=== PATIENT | female | born 1990 | race Caucasian/White ===

== ENCOUNTER 2020-10-05 16:36 | Emergency (ER) | payer OTHER, SELFPAY ==
--- NOTE | ~2020-10-05 | US_ITS ---
EXAMINATION: US , LESS THAN 14 WEEKS CLINICAL INFORMATION: 4 weeks . Heavy vaginal bleeding COMPARISON: None. TECHNIQUE: Transcutaneous early obstetrical ultrasound. The patient was asked to void completely and reexamined vaginally to better characterize the endometrial cavity and adnexa. FINDINGS: No suspicious abnormality in the region of the vagina. The cervix is at least 2 cm in length. There are numerous anechoic spaces consistent with small nabothian cysts. No convincing intrauterine gestational sac. No cardiac activity demonstrated. No pole demonstrated. The uterine contour is smooth. There is some decidual reaction. No focal abnormality of the myometrium. The endometrium is thickened and heterogeneous. There is no anechoic space to suggest gestational sac or pseudogestational sac. No large adnexal mass. The right ovary measures approximately 3.2 x 2.2 x 2.6 cm.The estimated right ovarian volume is 10 mL. No suspicious right adnexal mass or collection. The left ovary measures approximately 2.8 x 2.1 x 1.6 cm. The estimated left ovarian volume is fontanelle. No suspicious left adnexal mass or collection. Measurements include: Gestational sac not demonstrated. No yolk sac demonstrated. No pole demonstrated. No specific evidence of an ectopic . No cardiac activity demonstrated. There may be a trace amount of cul-de-sac fluid which is nonspecific US/US OB pelvic and transvaginal IMPRESSION: No intrauterine gestation demonstrated. The possibilities include a which is too early to detect within the uterus. Ectopic is not excluded. Heterogeneous thickened endometrium could reflect bleeding. The patient should be managed on a clinical basis
--- NOTE | 2020-10-05 18:18 | ED_ITS ---
HPI - Female Genitourinary General Chief complaint: Vaginal Bleeding Stated complaint: vaginal bleeding Time Seen by Provider: 10/05/20 18:18 Source: patient Mode of arrival: ambulatory Limitations: no limitations History of Present Illness HPI Narrative: Patient primi with in-vitro fertilization on 09/16 noticed to have slight vaginal bleeding earlier today just passed a moderate size clot prior to arrival with lower abdominal cramps. Related Data Allergies Allergy/AdvReac Type Severity Reaction Status Date / Time No Known Allergies Allergy Verified 12/19/19 11:15 lactose Allergy Unknown Unknown Uncoded 12/19/19 11:15 Review of Systems Review of Systems: Yes all other systems are reviewed and are negative [facility] Past Medical History Surgical History Epidermal cyst Family History Family History Father HTN (hypertension) Cancer Diabetes mellitus Unknown family medical history Mother HTN (hypertension) Maternal Grandmother No problems noted. Maternal Grandfather Unknown family medical history Paternal Grandmother Unknown family medical history Cancer Paternal Grandfather Unknown family medical history Brother No problems noted. Sister No problems noted. Sister No problems noted. Social History Social History Advance Directives: No Advance Directives Information Provided: No Patient : Yes Physical Exam Vital Signs: Vital Signs: Last Vital Signs Temp 98.6 F 10/05/20 18:35 Pulse 101 H 10/05/20 18:35 Resp 20 10/05/20 18:35 BP 130/78 10/05/20 18:35 Pulse Ox 100 10/05/20 18:35 Body Mass Index 32.1 Appearance: Alert. Oriented X3. No acute distress. Eyes: PERRLA, No Nystagmus ENT: Pharynx normal. Oral Mucosa moist Neck: Normal inspection. Neck supple. CVS: Normal heart rate and rhythm. Pulses normal. Respiratory: No respiratory distress. Equal air entry bilateral, no wheezing/rales/rhonchi Abdomen: Soft and nontender. Bowel sounds are present, no mass palpable, no CVA tenderness Skin: Skin warm and dry. Normal skin color. Normal skin turgor. Extremities: No lower extremity edema. No calf tenderness Neuro: Oriented X 3. MDM - Female Genitourinary MDM Narrative Medical decision making narrative: Patient with HCG 7927ultrasound negative for any IUP likely miscarriage patient advised to follow-up with her OB tomorrow Lab Data Attestation: I reviewed the patient's lab results. Labs: Lab Results 10/05/20 10/05/20 Range/Units 19:25 19:25 Beta HCG, Quant 7927 mIU/mL Blood Type A Positive Imaging Data US - abdomen: Radiologist's impression: Patient: Janene Cano MR#: [id number] : 1990 Acct:[id number] Age/Sex: 30 / F ADM Date: 10/05/20 Loc: HO.ED Attending Dr: Ordering Physician: Mina Joya MD Date of Service: 10/05/20 Procedure(s): US OB pelvic and transvaginal Accession Number(s): [id number] cc: Mina Joya MD~ EXAMINATION: US , LESS THAN 14 WEEKS CLINICAL INFORMATION: 4 weeks . Heavy vaginal bleeding COMPARISON: None. TECHNIQUE: Transcutaneous early obstetrical ultrasound. The patient was asked to void completely and reexamined vaginally to better characterize the endometrial cavity and adnexa. FINDINGS: No suspicious abnormality in the region of the vagina. The cervix is at least 2 cm in length. There are numerous anechoic spaces consistent with small nabothian cysts. No convincing intrauterine gestational sac. No cardiac activity demonstrated. No pole demonstrated. The uterine contour is smooth. There is some decidual reaction. No focal abnormality of the myometrium. The endometrium is thickened and heterogeneous. There is no anechoic space to suggest gestational sac or pseudogestational sac. No large adnexal mass.? The right ovary measures approximately 3.2 x 2.2 x 2.6 cm.The estimated right ovarian volume is 10 mL. No suspicious right adnexal mass or collection. The left ovary measures approximately 2.8 x 2.1 x 1.6 cm. The estimated left ovarian volume is fontanelle. No suspicious left adnexal mass or collection. Measurements include: Gestational sac not demonstrated. No yolk sac demonstrated. No pole demonstrated. No specific evidence of an ectopic . No cardiac activity demonstrated. There may be a trace amount of cul-de-sac fluid which is nonspecific US/US OB pelvic and transvaginal IMPRESSION: No intrauterine gestation demonstrated. ? The possibilities include a which is too early to detect within the uterus. ? Ectopic is not excluded. ? Heterogeneous thickened endometrium could reflect bleeding. ? The patient should be managed on a clinical basis ? Discharge Plan Discharge Clinical Impression: Threatened Patient Disposition: Home, Self-Care Instructions: Threatened Miscarriage (ED) Additional Instructions: Follow-up with your OBG in 1-2 days for confirmation of /miscarriage Tylenol for pain Interventions: ED Discharge Assessment Last Done: 10/05/20 20:49 Discharge Date/Time: 10/05/20 20:50
[2020-10-05 18:35] VITALS: BP 130/78; PULSE 101; RESP 20; TEMP 37; O2SAT 100; BMI 32.1
[2020-10-05 20:07] LABS: HCG Quantitative 7927 mIU/mL
--- NOTE | 2020-10-05 20:49 | PC.NURSE ---
Pt reports passing 1 large clot, otherwise small amount of vaginal bleeding at this time, changing hygeine pad q3 hrs.
== END 2020-10-05 20:50 | disposition home or self-care (01) ==
PROVIDERS: Emergency Provider Internal Medicine
DX: O20.0 Threatened abortion (principal); Z3A.01 Less than 8 weeks gestation of pregnancy
CPT/HCPCS: 36415; 76801; 76817; 84702; 86900; 86901; 99283; 99284

== ENCOUNTER 2020-12-12 08:13 | Emergency (ER) | payer OTHER, SELFPAY ==
--- NOTE | ~2020-12-12 | XR_ITS ---
EXAMINATION: XR SOFT TISSUE NECK CLINICAL INDICATION: Throat swelling/tightness. COMPARISON: None TECHNIQUE: 2 views of the soft tissue neck were obtained. FINDINGS: Soft tissue films of the neck demonstrate a normal larynx, pharynx and upper trachea. No soft tissue swelling or opaque foreign body is demonstrated. XR/XR soft tissue neck IMPRESSION: Unremarkable examination.
--- NOTE | ~2020-12-12 | XR_ITS ---
EXAMINATION: XR CHEST CLINICAL INFORMATION: Chest pain. COMPARISON: Most recent chest radiograph dated 09/19/2016. TECHNIQUE: Frontal view of the chest was obtained. FINDINGS: The lungs are clear. The cardiomediastinal silhouette is normal in size. There is no pleural effusion or pneumothorax. No acute osseous abnormality. XR/XR chest 1V IMPRESSION: No acute cardiopulmonary findings.
--- NOTE | 2020-12-12 08:15 | ECG_ITS ---
Test Reason : EPIGATRIC PAIN Blood Pressure : / mmHG Vent. Rate : 083 BPM Atrial Rate : 083 BPM P-R Int : 166 ms QRS Dur : 088 ms QT Int : 384 ms P-R-T Axes : 025 057 009 degrees QTc Int : 451 ms Normal sinus rhythm Normal ECG No previous ECGs available Referred By: Generic ED Physician Electronically Signed By:WASHINGTON ZAMBRANO MD
[2020-12-12 09:19] LABS: MANUAL DIFF FLAG NO
[2020-12-12 09:20] LABS: Basophils Percent Auto 0.5 % (0-2); Eosinophils Absolute Auto 0.1 X10*3/uL (0.0-0.4); Eosinophils Percent Auto 0.8 % (0-4); Hematocrit 36.9 % (37-47); Hemoglobin 12.1 g/dl (12.0-16.0); Imm Gran Abs Auto 0.04 X10*3/uL (0.00-0.03); Imm Gran Pct Auto 0.5 % (0.0-0.4); Lymphocytes Absolute Auto 3.3 X10*3/uL (1.2-4.9); Lymphocytes Percent Auto 38.9 % (20-40); Mean Corpuscular HGB Conc 32.8 g/dl (31.0-35.0); Mean Corpuscular Hemoglobin 28.5 pg (27.0-33.0); Mean Platelet Volume 9.6 fL (9.4-12.3); Monocytes Absolute Auto 0.6 X10*3/uL (0.1-1.2); Monocytes Percent Auto 7.4 % (2-11); Neutrophils Absolute Auto 4.4 X10*3/uL (2.0-8.3); Neutrophils Percent Auto 51.9 % (45-73); Platelet Count 334 X10*3/uL (160-400); Red Blood Count 4.24 X10*6/uL (4.20-5.50); Red Cell Distribution Width 13.1 % (11.0-16.0); White Blood Count 8.4 X10*3/uL (4.8-10.8)
[2020-12-12 09:24] VITALS: BP 112/75; PULSE 69; RESP 16; TEMP 36.8; O2SAT 98; BMI 30.9
[2020-12-12 09:40] LABS: Anion Gap 8 (12-20); Blood Urea Nitrogen 9 mg/dL (9-16); Calcium 9.6 mg/dL (8.4-10.2); Carbon Dioxide 28 mmol/L (22-29); Chloride 109 mmol/L (96-108); Estimated Glomerular Filt Rate > 60; Glucose Random 96 mg/dL (60-115); Potassium 4.4 mmol/L (3.3-5.1); Sodium 141 mmol/L (135-145)
[2020-12-12 09:41] LABS: Troponin-I High Sensitivity < 3.5 ng/L (<3.5-17.0)
--- NOTE | 2020-12-12 09:58 | ED.GENADULT ---
HPI - General Adult General Chief complaint: General Medical Stated complaint: chest pain Time Seen by Provider: 12/12/20 09:17 Source: patient Mode of arrival: ambulatory History of Present Illness HPI narrative: 30-year-old female with a past medical history of miscarriage in September, currently on Doxycycline for ?uterine enlargement since 12/01, presented to ED complaining of sore throat/throat tightness radiating down to chest x5 days. Reports pain with swallowing and CP. Denies LE edema/calf pain. Admits symptoms are intermittent. Denies difficulty swallowing, inability to swallow, drooling, SOB, choking, abdominal pain, nausea/vomiting Onset (ago): day(s) Related Data Home Medications Medication Instructions Recorded Confirmed doxycycline hyclate 100 mg capsule 100 mg PO BID 12/11/20 Previous Rx's Medication Instructions Recorded famotidine 20 mg tablet 20 mg PO BID PRN #60 tab 12/11/20 omeprazole 20 mg capsule,delayed 20 mg PO DAILY #30 cap 12/11/20 release aluminum-mag hydroxide-simethicone 5 ml PO 5XD PRN #30 ml 12/12/20 200 mg-200 mg-20 mg/5 mL oral susp (Maalox Advanced) famotidine 20 mg tablet (Pepcid) 20 mg PO DAILY #14 tab 12/12/20 lidocaine HCl 2 % mucosal solution 1 appl MUCOUS MEMBRANE QID PRN 12/12/20 (Lidocaine Viscous) #100 ml Allergies Allergy/AdvReac Type Severity Reaction Status Date / Time No Known Allergies Allergy Verified 12/19/19 11:15 lactose Allergy Unknown Unknown Uncoded 12/19/19 11:15 Review of Systems Review of Systems: Constitutional: No Fever, No Chills, No Fatigue, No Malaise ENT/Mouth: No Ear Pain, No Nasal Congestion, No Sinus Pain, No Hoarseness, + sore throat,+ pain with swallowing, No Swallowing Difficulty Eyes: No Eye Pain, No Swelling, No Redness Cardiovascular: + Chest Pain, No SOB, No Dyspnea on Exertion, No Edema, No Palpitations Respiratory: No Cough, No Dyspnea Gastrointestinal: No Nausea, No Vomiting, No Diarrhea, No Constipation, No Abdominal pain Genitourinary: , No Dysuria, No Urinary Frequency, No Hematuria,No Flank Pain, No Urinary Flow Changes, No Hesitancy Musculoskeletal: No joint pain, No Myalgias, No Joint Swelling Skin: No Skin Lesions, No rash Neuro: No Weakness, No Numbness, No Headache Yes all other systems are reviewed and are negative [facility] Past Medical History Attestation statement: The following information was validated with the patient. Surgical History Epidermal cyst Family History Family History Father HTN (hypertension) Cancer Diabetes mellitus Unknown family medical history Mother HTN (hypertension) Maternal Grandmother No problems noted. Maternal Grandfather Unknown family medical history Paternal Grandmother Unknown family medical history Cancer Paternal Grandfather Unknown family medical history Brother No problems noted. Sister No problems noted. Sister No problems noted. Social History Social History Advance Directives: No Patient : No Physical Exam Vital Signs: Vital Signs: Last Vital Signs Temp 98.3 F 12/12/20 09:24 Pulse 69 12/12/20 09:24 Resp 16 12/12/20 09:24 BP 112/75 12/12/20 09:24 Pulse Ox 98 12/12/20 09:24 Body Mass Index 30.9 Const: General: cooperative, healthy appearing and no acute distress Orientation/consciousness: patient oriented x3 Limitations: no limitations HENMT: Head: Yes normal to inspection Ears: hearing grossly normal bilaterally General nose exam: Normal external nose present Face and sinus: Yes normal facial exam Throat: Yes posterior oropharynx normal, Yes tonsils normal, Yes uvula midline, No peritonsillar mass and No uvular edema Eyes: General: appearance normal, both eyes and all related structures EOM: EOMs intact bilaterally Neck: Other: + bilateral tender anterior cervical lymphadenopathy Neck: Yes normal visual inspection, Yes no lymphadenopathy, Yes no meningeal signs, Yes supple and No torticollis Resp: Effort & Inspection: normal respiratory effort, no grunting, not labored, no stridor and not tachypneic Auscultation: clear to auscultation bilaterally, no rales, no rhonchi and no wheezes Cardio: Rate: regular rate Heart sounds: S1 normal heart sound present and S2 normal heart sound present GI: Inspection: Yes normal to inspection Palpation (GI): Soft to palpation, nontender, no guarding and not rigid Skin: Rashes: no rashes Wounds: no wounds Neuro: General: patient oriented x3 and no meningeal signs Gait exam (Neuro): Normal gait present Extrem: General: Yes normal to inspection, Yes no pedal edema and Yes no calf tenderness Course Course Course Narrative: -no leukocytosis. Labs otherwise unremarkable. Troponin negative. XR chest 1V IMPRESSION: No acute cardiopulmonary findings. XR soft tissue neck IMPRESSION: Unremarkable examination. > results discussed with patient including worrisome signs and symptoms and strict return precautions and need to follow up with ENT Medical Decision Making [facility] Narrative Medical decision making narrative: 30-year-old female with a past medical history of miscarriage in September, currently on Doxycycline for ?uterine enlargement since 12/01, presented to ED complaining of sore throat/throat tightness radiating down to chest x5 days. On exam VSS, NAD, nontoxic appearing, anterior cervical lymphadenopathy noted, oropharynx WNL, no appreciable intraoral swelling, lungs CTA, no stridor, talking in full sentences, abdomen soft/nontender. Concern for esophagitis/GERD possibly due to doxycycline vs atypical ACS Plan: EKG, labs, CXR, soft tissue neck, symptomatic remedies, reassess Lab Data Result diagrams: 12/12/20 09:09 12/12/20 09:09 Labs: Lab Results 12/12/20 12/12/20 12/12/20 Range/Units 09:09 09:09 09:09 WBC 8.4 (4.8-10.8) X10*3/uL RBC 4.24 (4.20-5.50) X10*6/uL Hgb 12.1 (12.0-16.0) g/dl Hct 36.9 L (37-47) % MCV 87.0 (80-98) fL MCH 28.5 (27.0-33.0) pg MCHC 32.8 (31.0-35.0) g/dl RDW 13.1 (11.0-16.0) % Plt Count 334 (160-400) X10*3/uL MPV 9.6 (9.4-12.3) fL Immature Gran % (Auto) 0.5 H (0.0-0.4) % Neut % (Auto) 51.9 (45-73) % Lymph % (Auto) 38.9 (20-40) % [place] % (Auto) 7.4 (2-11) % Eos % (Auto) 0.8 (0-4) % Baso % (Auto) 0.5 (0-2) % Lymph # (Auto) 3.3 (1.2-4.9) X10*3/uL [place] # (Auto) 0.6 (0.1-1.2) X10*3/uL Eos # (Auto) 0.1 (0.0-0.4) X10*3/uL Baso # (Auto) 0.0 (0.0-0.2) X10*3/uL Abs Immat Gran (auto) 0.04 H (0.00-0.03) X10*3/uL Absolute Neuts (auto) 4.4 (2.0-8.3) X10*3/uL Absolute Nucleated RBC 0.000 (0.0-0.012) X10*3/uL Nucleated RBC % (auto) 0.0 (0.0-0.2) /100WBC Sodium 141 (135-145) mmol/L Potassium 4.4 (3.3-5.1) mmol/L Chloride 109 H (96-108) mmol/L Carbon Dioxide 28 (22-29) mmol/L Anion Gap 8 L (12-20) BUN 9 (9-16) mg/dL Creatinine 0.68 (0.5-1.4) mg/dL Estim Creat Clear Calc 132.0 Estimated GFR > 60 Random Glucose 96 (60-115) mg/dL Calcium 9.6 (8.4-10.2) mg/dL Troponin I High Sens < 3.5 (<3.5-17.0) ng/L Discharge Plan Discharge Clinical Impression: Esophagitis Patient Disposition: Home, Self-Care Instructions: Esophagitis (ED) Additional Instructions: Your x-rays are unremarkable. Her blood work was reassuring Maalox and Pepcid will help with acid reduction/pain management if her symptoms Viscous lidocaine will help numb her throat Please follow-up with an ENT specialist If you develop continued or worsening symptoms, difficulty or inability to swallow, oral swelling, shortness of breath please return to the ED immediately Prescriptions: New alum-mag hydroxide-simeth [Maalox Advanced] 200-200-20 mg/5 mL suspension 5 ml PO 5XD PRN (Reason: dyspepsia) Qty: 30 RF: 0 famotidine [Pepcid] 20 mg tablet 20 mg PO DAILY Qty: 14 RF: 0 lidocaine HCl [Lidocaine Viscous] 2 % solution 1 appl mucous membrane QID PRN (Reason: pain) Qty: 100 RF: 0 No Action doxycycline hyclate 100 mg capsule 100 mg PO BID RF: 0 famotidine 20 mg tablet 20 mg PO BID PRN (Reason: dyspepsia) Qty: 60 RF: 0 omeprazole 20 mg capsule,delayed release(DR/EC) 20 mg PO DAILY Qty: 30 RF: 0 Referrals: Ulices Grant [Physician] - 5 days
[2020-12-12] MEDS: Magnesium Hydrox/Alum Hydrox 30 ML ORAL.SUSP PO (10:53)
[2020-12-12] MEDS: Famotidine 20 MG TABLET PO (10:53)
[2020-12-12] MEDS: Lidocaine HCl Viscous 2 % 15 ML SOLUTION MUCOUS MEM (10:53)
== END 2020-12-12 11:27 | disposition home or self-care (01) ==
PROVIDERS: Emergency Provider Emergency Medicine
DX: K20.90 Esophagitis, unspecified without bleeding (principal); R07.9 Chest pain, unspecified; M54.2 Cervicalgia; Z79.899 Other long term (current) drug therapy
CPT/HCPCS: 36415; 70360; 71045; 80048; 84484; 85025; 93005; 99283

== ENCOUNTER 2021-06-26 08:48 | Outpatient (REF) | payer OTHER, SELFPAY ==
[2021-06-26 11:35] LABS: Hematocrit 39.3 % (37.0-47.0); Hemoglobin 12.8 g/dl (12.0-16.0); Mean Corpuscular HGB Conc 32.6 g/dl (31.0-35.0); Mean Corpuscular Hemoglobin 27.7 pg (27.0-33.0); Mean Corpuscular Volume 85.1 fL (80.0-98.0); Mean Platelet Volume 9.9 fL (9.4-12.3); Platelet Count 368 X10*3/uL (160-400); Red Blood Count 4.62 X10*6/uL (4.20-5.50); White Blood Count 8.8 X10*3/uL (4.8-10.8)
[2021-06-26 12:29] LABS: Alanine Aminotransferase 18 U/L (0-31); Albumin Level 4.1 g/dL (3.5-5.0); Alkaline Phosphatase 80 U/L (39-117); Anion Gap 9 (12-20); Aspartate Amino Transferase 19 U/L (5-31); Bilirubin Total 0.3 mg/dL (0.0-1.0); Blood Urea Nitrogen 11 mg/dL (9-16); Calcium 9.6 mg/dL (8.4-10.2); Carbon Dioxide 27 mmol/L (22-29); Chloride 106 mmol/L (96-108); Cholesterol 292 mg/dL; Estimated Glomerular Filt Rate > 60; Glucose Fasting 99 mg/dL (60-99); HDL Cholesterol 49 mg/dL; LDL Cholesterol Calculated 213 mg/dl; Potassium 4.3 mmol/L (3.3-5.1); Sodium 138 mmol/L (135-145); Total Protein 7.8 g/dL (6.5-8.0); Triglycerides 154 mg/dL
[2021-06-28 19:36] LABS: TS Negative Control Passed; TS Panel A 0; TS Panel B 0; TS Positive Control Passed; TSpotTB Negative (Negative)
[2021-06-30 05:07] LABS: Rubella IgG Antibody 1.35 Index
== END 2021-06-26 08:49 | disposition home or self-care (01) ==
LOC: HO.HMGCLDS 08:48
PROVIDERS: Visit Provider Internal Medicine
DX: Z00.00 Encounter for general adult medical examination without abnormal findings (principal); Z11.1 Encounter for screening for respiratory tuberculosis
CPT/HCPCS: 36415; 80053; 80061; 85027; 86481; 86735; 86762; 86765

== ENCOUNTER 2021-07-13 19:29 | Emergency (ER) | payer OTHER, SELFPAY ==
[2021-07-13 19:38] VITALS: BP 139/84; PULSE 100; RESP 18; TEMP 36.4; O2SAT 96; BMI 33.4
[2021-07-13 19:50] LABS: MANUAL DIFF FLAG NO
[2021-07-13 19:52] LABS: Basophils Absolute Auto 0.1 X10*3/uL (0.0-0.2); Basophils Percent Auto 0.4 % (0-2); Eosinophils Absolute Auto 0.1 X10*3/uL (0.0-0.4); Eosinophils Percent Auto 0.6 % (0-4); Hematocrit 36.6 % (37.0-47.0); Imm Gran Abs Auto 0.04 X10*3/uL (0.00-0.03); Imm Gran Pct Auto 0.3 % (0.0-0.4); Lymphocytes Absolute Auto 4.4 X10*3/uL (1.2-4.9); Lymphocytes Percent Auto 38.6 % (20-40); Mean Corpuscular HGB Conc 32.8 g/dl (31.0-35.0); Mean Corpuscular Hemoglobin 27.6 pg (27.0-33.0); Mean Corpuscular Volume 84.3 fL (80.0-98.0); Mean Platelet Volume 9.5 fL (9.4-12.3); Monocytes Absolute Auto 0.8 X10*3/uL (0.1-1.2); Monocytes Percent Auto 6.7 % (2-11); Neutrophils Absolute Auto 6.1 x10*3/uL (2.0-8.3); Neutrophils Percent Auto 53.4 % (45-73); Platelet Count 345 X10*3/uL (160-400); Red Blood Count 4.34 X10*6/uL (4.20-5.50); Red Cell Distribution Width 13.1 % (11.0-16.0); White Blood Count 11.5 X10*3/uL (4.8-10.8)
[2021-07-13 20:17] LABS: Anion Gap 12 (12-20); Blood Urea Nitrogen 13 mg/dL (9-16); Calcium 9.8 mg/dL (8.4-10.2); Carbon Dioxide 25 mmol/L (22-29); Chloride 108 mmol/L (96-108); Creatinine Clr Calc Pharmacy 121.6; Estimated Glomerular Filt Rate > 60; Glucose Random 139 mg/dL (60-115); Potassium 3.6 mmol/L (3.3-5.1); Sodium 141 mmol/L (135-145)
[2021-07-14 02:13] VITALS: BP 119/80; PULSE 70; RESP 18; O2SAT 97
--- NOTE | 2021-07-14 03:02 | ED.SKABFB ---
HPI - Skin/Abscess/Foreign Bdy General Chief complaint: Skin/Abscess/Foreign Body Stated complaint: painful bump on R breast Time Seen by Provider: 07/14/21 00:10 Source: patient Mode of arrival: ambulatory History of Present Illness HPI narrative: 31-year-old female without significant past medical history and denies any family history of breast cancer presents with a small reddened area to the medial aspect of the right breast this started Tuesday and has progressively grown in size and is now quite painful. Otherwise she denies any fever chills. Related Data Previous Rx's Medication Instructions Recorded cephalexin 500 mg capsule 500 mg PO Q12H 5 Days #10 cap 07/14/21 Allergies Allergy/AdvReac Type Severity Reaction Status Date / Time No Known Allergies Allergy Verified 07/13/21 19:38 lactose Allergy Unknown Unknown Uncoded 07/13/21 19:38 Review of Systems Review of Systems: Pertinent positives and negatives as stated in HPI 10 point review of systems is otherwise negative. [facility] Past Medical History Source: nursing notes reviewed Medical History Annual physical exam Hyperlipidemia Normal pelvic exam Surgical History Epidermal cyst Family History Family History Father HTN (hypertension) Cancer Diabetes mellitus Unknown family medical history Mother HTN (hypertension) Maternal Grandmother No problems noted. Maternal Grandfather Unknown family medical history Paternal Grandmother Unknown family medical history Cancer Paternal Grandfather Unknown family medical history Brother No problems noted. Sister No problems noted. Sister No problems noted. Social History Social History Household Members Other:: , no children, works in school cafeteria Housing: House Patient Tobacco Use Status: Never used Tobacco Advance Directives: No Advance Directives Information Provided: No Current occupational status: employed Cognitive needs: No Hearing needs: No Vision needs: No Physical Exam Vital Signs: Vital Signs: Last Vital Signs Temp 97.6 F 07/13/21 19:38 Pulse 70 07/14/21 02:13 Resp 18 07/14/21 02:13 BP 119/80 07/14/21 02:13 Pulse Ox 97 07/14/21 02:13 BMI result Body Mass Index 33.4 VITAL SIGNS: Reviewed. GENERAL: Well developed, well nourished, in no acute distress. HEAD: Normocephalic/atraumatic EYES: PERRLA, EOMI LUNGS: Normal breath sounds. No adventitious sounds or accessory muscle use. SpO2<97> RIGHT BREAST:[[employer]-Tosin] there is a 2 cm circumferential reddened area without fluctuance noted to the medial aspect of the right breast. CARDIOVASCULAR: Regular rate and rhythm without noted murmurs ABDOMEN: Soft, non-tender, non-distended with bowel sounds. MUSCULOSKELETAL: No tenderness, deformities, or effusions noted on gross inspection. EXTREMITIES: No cyanosis, clubbing or edema. SKIN: Inspection of the skin reveals no rashes NEUROLOGIC: Alert and oriented x 4. Course Course Course Narrative: 31-year-old female with history and clinical presentation consistent with a folliculitis/abscess at the right breast. This will be treated with continued warm moist compresses as well as a course of antibiotics. MDM - Skin/Abscess/Foreign Bdy Lab Data Result diagrams: 07/13/21 19:47 07/13/21 19:47 Labs: Lab Results 07/13/21 07/13/21 Range/Units 19:47 19:47 WBC 11.5 H (4.8-10.8) X10*3/uL RBC 4.34 (4.20-5.50) X10*6/uL Hgb 12.0 (12.0-16.0) g/dl Hct 36.6 L (37.0-47.0) % MCV 84.3 (80.0-98.0) fL MCH 27.6 (27.0-33.0) pg MCHC 32.8 (31.0-35.0) g/dl RDW 13.1 (11.0-16.0) % Plt Count 345 (160-400) X10*3/uL MPV 9.5 (9.4-12.3) fL Immature Gran % (Auto) 0.3 (0.0-0.4) % Neut % (Auto) 53.4 (45-73) % Lymph % (Auto) 38.6 (20-40) % [place] % (Auto) 6.7 (2-11) % Eos % (Auto) 0.6 (0-4) % Baso % (Auto) 0.4 (0-2) % Lymph # (Auto) 4.4 (1.2-4.9) X10*3/uL [place] # (Auto) 0.8 (0.1-1.2) X10*3/uL Eos # (Auto) 0.1 (0.0-0.4) X10*3/uL Baso # (Auto) 0.1 (0.0-0.2) X10*3/uL Abs Immat Gran (auto) 0.04 H (0.00-0.03) X10*3/uL Absolute Neuts (auto) 6.1 (2.0-8.3) x10*3/uL Absolute Nucleated RBC 0.000 (0.0-0.012) X10*3/uL Nucleated RBC % (auto) 0.0 (0.0-0.2) /100WBC Sodium 141 (135-145) mmol/L Potassium 3.6 (3.3-5.1) mmol/L Chloride 108 (96-108) mmol/L Carbon Dioxide 25 (22-29) mmol/L Anion Gap 12 (12-20) BUN 13 (9-16) mg/dL Creatinine 0.76 (0.5-1.4) mg/dL Estim Creat Clear Calc 121.6 Estimated GFR > 60 Random Glucose 139 H (60-115) mg/dL Calcium 9.8 (8.4-10.2) mg/dL Discharge Plan Discharge Clinical Impression: Abscess of breast Patient Disposition: Home, Self-Care Instructions: Mastitis (ED), Warm Compress or Soak (ED) Additional Instructions: 1. Complete the entire course of antibiotics as prescribed. 2. Please establish care with a primary care provider at your earliest convenience. Return to the ER for worsening symptoms. Prescriptions: New cephalexin 500 mg capsule 500 mg PO Q12H 5 Days Qty: 10 0RF Referrals: Physician,Unknown J [Primary Care Provider] -
[2021-07-14] MEDS: cephALEXin 500 MG CAPSULE PO (03:13)
[2021-07-14 03:17] VITALS: BP 125/82; PULSE 72; RESP 16; TEMP 36.6; O2SAT 98
== END 2021-07-14 03:18 | disposition home or self-care (01) ==
PROVIDERS: Emergency Provider Student in an Organized Health Care Education/Training Program
DX: N61.1 Abscess of the breast and nipple (principal); Z79.899 Other long term (current) drug therapy
CPT/HCPCS: 36415; 80048; 85025; 99283; 99284

== ENCOUNTER 2021-07-31 01:47 | Emergency (ER) | payer SELFPAY ==
--- NOTE | 2021-07-31 | ECG_ITS ---
Test Reason : CHEST PAIN Blood Pressure : / mmHG Vent. Rate : 099 BPM Atrial Rate : 099 BPM P-R Int : 168 ms QRS Dur : 092 ms QT Int : 332 ms P-R-T Axes : 030 073 006 degrees QTc Int : 426 ms Normal sinus rhythm Possible Left atrial enlargement Possible Inferior infarct (cited on or before 31-JUL-2021) Abnormal ECG When compared with ECG of 12-DEC-2020 08:20, No significant change was found Referred By: Generic ED Physician Electronically Signed By:EDU HOLLEY MD
--- NOTE | ~2021-07-31 | XR_ITS ---
EXAMINATION: XR CHEST CLINICAL INFORMATION: Chest pain COMPARISON: 12/12/2020 TECHNIQUE: 2 views of the chest were obtained. FINDINGS: Lung volumes are symmetric. No focal consolidation is seen. No evidence of pneumothorax, pleural effusion, or pulmonary edema. The cardiomediastinal contour is unremarkable. No acute osseous findings are seen. XR/XR chest 2V IMPRESSION: No acute cardiopulmonary findings.
[2021-07-31 01:52] VITALS: BP 144/84; PULSE 97; RESP 16; TEMP 36.9; O2SAT 98; BMI 33.4
[2021-07-31 02:17] LABS: Basophils Percent Auto 0.3 % (0-2); Eosinophils Percent Auto 0.4 % (0-4); Hematocrit 35.4 % (37.0-47.0); Hemoglobin 11.6 g/dl (12.0-16.0); Imm Gran Abs Auto 0.07 X10*3/uL (0.00-0.03); Imm Gran Pct Auto 0.7 % (0.0-0.4); Lymphocytes Absolute Auto 3.3 X10*3/uL (1.2-4.9); Lymphocytes Percent Auto 35.4 % (20-40); MANUAL DIFF FLAG NO; Mean Corpuscular HGB Conc 32.8 g/dl (31.0-35.0); Mean Corpuscular Hemoglobin 28.2 pg (27.0-33.0); Mean Corpuscular Volume 85.9 fL (80.0-98.0); Mean Platelet Volume 9.6 fL (9.4-12.3); Monocytes Percent Auto 10.6 % (2-11); Neutrophils Percent Auto 52.6 % (45-73); Platelet Count 318 X10*3/uL (160-400); Red Blood Count 4.12 X10*6/uL (4.20-5.50); White Blood Count 9.4 X10*3/uL (4.8-10.8)
[2021-07-31 02:30] LABS: COVID-19 Test Negative (Negative)
[2021-07-31 02:31] LABS: IDNOW Serial# 16C4AD1C; Influenza A Negative (Negative); Influenza B2 Negative (Negative)
[2021-07-31 02:33] LABS: Alanine Aminotransferase 15 U/L (0-31); Albumin Level 3.9 g/dL (3.5-5.0); Alkaline Phosphatase 82 U/L (39-117); Anion Gap 11 (12-20); Aspartate Amino Transferase 16 U/L (5-31); Bilirubin Total 0.3 mg/dL (0.0-1.0); Blood Urea Nitrogen 8 mg/dL (9-16); Carbon Dioxide 24 mmol/L (22-29); Chloride 106 mmol/L (96-108); Creatinine Clr Calc Pharmacy 126.5; Estimated Glomerular Filt Rate > 60; Glucose Random 123 mg/dL (60-115); Potassium 3.4 mmol/L (3.3-5.1); Sodium 138 mmol/L (135-145); Total Protein 7.3 g/dL (6.5-8.0)
[2021-07-31 02:39] LABS: Troponin-I High Sensitivity < 3.5 ng/L (<3.5-17.0)
[2021-07-31 04:42] VITALS: BP 134/85; PULSE 104; RESP 20; O2SAT 96
--- NOTE | 2021-07-31 05:12 | ED.SOB ---
HPI - SOB/Dyspnea General Chief Complaint: Dyspnea Stated Complaint: chest pain & difficulty breathing Time Seen by Provider: 07/31/21 05:11 Source: patient Mode of arrival: ambulatory Limitations: no limitations History of Present Illness HPI Narrative: 31 years old female came in for evaluation of shortness of breath. 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 Related Data Previous Rx's Medication Instructions Recorded cephalexin 500 mg capsule 500 mg PO Q12H 5 Days #10 cap 07/14/21 albuterol sulfate 90 mcg/actuation 1 inh INHALATION QID PRN #8.5 g 07/31/21 aerosol inhaler prednisone 20 mg tablet 20 mg PO BID #10 tab 07/31/21 Allergies Allergy/AdvReac Type Severity Reaction Status Date / Time No Known Allergies Allergy Verified 07/13/21 19:38 lactose Allergy Unknown Unknown Uncoded 07/13/21 19:38 Review of Systems Review of Systems: All other systems are reviewed and are negative Constitutional: Reports as per HPI and Reports no additional constitutional complaints Eyes: Reports as per HPI and Reports no additional eye complaints Reports system reviewed and no additional complaints, except as documented Cardiovascular: Reports as per HPI and Reports no additional cardiovascular complaints Respiratory: Reports as per HPI and Reports no additional respiratory complaints Gastrointestinal: Reports as per HPI and Reports no additional gastrointestinal complaints Genitourinary: Reports no additional female genitourinary complaints Musculoskeletal: Reports no additional musculoskeletal complaints Skin/Breast: Reports system reviewed and no additional complaints, except as docu Psychiatric: Reports no additional psychiatric complaints Endocrine: Reports no additional endocrine complaints Hematologic/Lymphatic: Reports no additional hematologic/lymphatic complaints Allergic/Immunologic: Reports no additional allergic/immunologic complaints Reports system reviewed and no additional complaints, except as documented and Reports Abnormal speech present [facility] Past Medical History Medical History Annual physical exam Hyperlipidemia Normal pelvic exam Surgical History Epidermal cyst Family History Family History Father HTN (hypertension) Cancer Diabetes mellitus Unknown family medical history Mother HTN (hypertension) Maternal Grandmother No problems noted. Maternal Grandfather Unknown family medical history Paternal Grandmother Unknown family medical history Cancer Paternal Grandfather Unknown family medical history Brother No problems noted. Sister No problems noted. Sister No problems noted. Social History Social History Household Members Other:: , no children, works in school cafeteria Housing: House Patient Tobacco Use Status: Never used Tobacco Advance Directives: No Current occupational status: employed Cognitive needs: No Hearing needs: No Vision needs: No Physical Exam Vital Signs: Vital Signs: Last Vital Signs Temp 98.4 F 07/31/21 01:52 Pulse 104 H 07/31/21 04:42 Resp 20 07/31/21 04:42 BP 134/85 07/31/21 04:42 Pulse Ox 96 07/31/21 04:42 BMI result Body Mass Index 33.4 Vital signs have been reviewed as appeared to be correct. Blood pressure normal. Heart rate elevated. Respiration rate normal. Temperature normal. Oxygen saturation normal. Appearance: Alert. Oriented X3. No acute distress. Head: Normal external exam. Normocephalic. Atraumatic. No Espinosa signs noted. No raccoon eyes noted Eyes: PERRLA. EOMI. Conjunctiva and sclera normal. Eyelids normal. ENT: TM's Normal. Pharynx normal. Uvula midline. Moist mucous membranes. No trismus noted. No drooling noted. No muffled voice noted. Neck: Normal inspection. Neck supple. FROM. No adenopathy. Thyroid Normal. No meningeal signs. No neck mass noted. CVS: Normal heart rate and rhythm. Heart sound normal. No murmurs noted. Pulses normal throughout. Respiratory: No respiratory distress. Painless inspiration. Breath sounds normal. Mild diffuse expiratory wheezing with prolonged expiration. Chest nontender. No accessory muscle usage noted or decreased air movement noted. Abdomen: Soft and nontender. Bowel sounds normal in all 4 quadrants. No distention noted. No organomegaly noted. No visible injury noted. Back: No CVA tenderness. Full range of motion noted. Skin: Skin warm and dry. Normal skin color. Normal skin turgor. No rashes/lesions/lacerations noted. Extremities: No lower extremity edema. Extremities exhibit normal range of motion. Extremities nontender. Neuro: Oriented X 3. Cranial nerve exam: II-XII are grossly intact No motor deficit. No sensory deficit. Reflexes normal. Course Course Course Narrative: Assessment and plan. 31-year-old female nonsmoker came in with shortness of breath, physical exam is consistent with bronchitis patient feels better after bronchodilator and prednisone given in the ED, will start the patient on prednisone/albuterol. MDM - SOB/Dyspnea Lab Data Attestation: I reviewed the patient's lab results. Result diagrams: 07/31/21 02:10 07/31/21 02:10 Labs: Lab Results 07/31/21 07/31/21 07/31/21 Range/Units 02:10 02:10 02:10 WBC 9.4 (4.8-10.8) X10*3/uL RBC 4.12 L (4.20-5.50) X10*6/uL Hgb 11.6 L (12.0-16.0) g/dl Hct 35.4 L (37.0-47.0) % MCV 85.9 (80.0-98.0) fL MCH 28.2 (27.0-33.0) pg MCHC 32.8 (31.0-35.0) g/dl RDW 13.0 (11.0-16.0) % Plt Count 318 (160-400) X10*3/uL MPV 9.6 (9.4-12.3) fL Immature Gran % (Auto) 0.7 H (0.0-0.4) % Neut % (Auto) 52.6 (45-73) % Lymph % (Auto) 35.4 (20-40) % [place] % (Auto) 10.6 (2-11) % Eos % (Auto) 0.4 (0-4) % Baso % (Auto) 0.3 (0-2) % Lymph # (Auto) 3.3 (1.2-4.9) X10*3/uL [place] # (Auto) 1.0 (0.1-1.2) X10*3/uL Eos # (Auto) 0.0 (0.0-0.4) X10*3/uL Baso # (Auto) 0.0 (0.0-0.2) X10*3/uL Abs Immat Gran (auto) 0.07 H (0.00-0.03) X10*3/uL Absolute Neuts (auto) 5.0 (2.0-8.3) x10*3/uL Absolute Nucleated RBC 0.000 (0.0-0.012) X10*3/uL Nucleated RBC % (auto) 0.0 (0.0-0.2) /100WBC Sodium (135-145) mmol/L Potassium (3.3-5.1) mmol/L Chloride (96-108) mmol/L Carbon Dioxide (22-29) mmol/L Anion Gap (12-20) BUN (9-16) mg/dL Creatinine (0.5-1.4) mg/dL Estim Creat Clear Calc Estimated GFR Random Glucose (60-115) mg/dL Calcium (8.4-10.2) mg/dL Total Bilirubin (0.0-1.0) mg/dL AST (5-31) U/L ALT (0-31) U/L Alkaline Phosphatase (39-117) U/L Troponin I High Sens (<3.5-17.0) ng/L Total Protein (6.5-8.0) g/dL Albumin (3.5-5.0) g/dL COVID-19 ([facility]) Negative (Negative) COVID-19 Clin Com See Note Influenza Type A ([facility]ERT[facility]) Negative (Negative) Influenza Type B ([facility]ERTAD) Negative (Negative) Influenza A & B Note See Note 07/31/21 07/31/21 Range/Units 02:10 02:10 WBC (4.8-10.8) X10*3/uL RBC (4.20-5.50) X10*6/uL Hgb (12.0-16.0) g/dl Hct (37.0-47.0) % MCV (80.0-98.0) fL MCH (27.0-33.0) pg MCHC (31.0-35.0) g/dl RDW (11.0-16.0) % Plt Count (160-400) X10*3/uL MPV (9.4-12.3) fL Immature Gran % (Auto) (0.0-0.4) % Neut % (Auto) (45-73) % Lymph % (Auto) (20-40) % [place] % (Auto) (2-11) % Eos % (Auto) (0-4) % Baso % (Auto) (0-2) % Lymph # (Auto) (1.2-4.9) X10*3/uL [place] # (Auto) (0.1-1.2) X10*3/uL Eos # (Auto) (0.0-0.4) X10*3/uL Baso # (Auto) (0.0-0.2) X10*3/uL Abs Immat Gran (auto) (0.00-0.03) X10*3/uL Absolute Neuts (auto) (2.0-8.3) x10*3/uL Absolute Nucleated RBC (0.0-0.012) X10*3/uL Nucleated RBC % (auto) (0.0-0.2) /100WBC Sodium 138 (135-145) mmol/L Potassium 3.4 (3.3-5.1) mmol/L Chloride 106 (96-108) mmol/L Carbon Dioxide 24 (22-29) mmol/L Anion Gap 11 L (12-20) BUN 8 L (9-16) mg/dL Creatinine 0.73 (0.5-1.4) mg/dL Estim Creat Clear Calc 126.5 Estimated GFR > 60 Random Glucose 123 H (60-115) mg/dL Calcium 9.0 D (8.4-10.2) mg/dL Total Bilirubin 0.3 (0.0-1.0) mg/dL AST 16 (5-31) U/L ALT 15 (0-31) U/L Alkaline Phosphatase 82 (39-117) U/L Troponin I High Sens < 3.5 (<3.5-17.0) ng/L Total Protein 7.3 (6.5-8.0) g/dL Albumin 3.9 (3.5-5.0) g/dL COVID-19 ([facility]) (Negative) COVID-19 Clin Com Influenza Type A ([facility]ERTAD) (Negative) Influenza Type B ([facility]ERTAD) (Negative) Influenza A & B Note Imaging Data Chest x-ray: Attestation: I personally reviewed and interpreted this imaging study as follows: Radiologist's impression: No acute cardiopulmonary findings. Discharge Plan Discharge Clinical Impression: Bronchitis Patient Disposition: Home, Self-Care Instructions: Acute Bronchitis (ED) Prescriptions: New prednisone 20 mg tablet 20 mg PO BID Qty: 10 0RF albuterol sulfate 90 mcg/actuation HFA aerosol inhaler 1 inh inhalation QID PRN (Reason: shortness of breath or wheezing) Qty: 8.5 0RF No Action cephalexin 500 mg capsule 500 mg PO Q12H 5 Days Qty: 10 0RF Referrals: Physician,Unknown J [Primary Care Provider] - Stand Alone Forms: Work/School Release
[2021-07-31] MEDS: Albuterol/Iprat 2.5/0.5MG 3 ML AMPUL.NEB INHALE (05:47)
[2021-07-31] MEDS: Albuterol Sulfate (0.083%) 2.5 MG/3 ML VIAL.NEB INHALE (05:47)
[2021-07-31 05:51] VITALS: PULSE 87; RESP 18; O2SAT 96
[2021-07-31] MEDS: predniSONE 20 MG TABLET 40 MG PO (06:25)
--- NOTE | 2021-07-31 06:29 | PC.NURSE ---
I discharged this [facility] pt at this time. SHe verbalized an understanding of all DC orders and she ambulated out of the ED independently and with steady gait.
== END 2021-07-31 06:29 | disposition home or self-care (01) ==
PROVIDERS: Emergency Provider Emergency Medicine
DX: J40 Bronchitis, not specified as acute or chronic (principal); Z20.822 Contact with and (suspected) exposure to COVID-19
CPT/HCPCS: 36415; 71046; 80053; 84484; 85025; 87502; 87635; 93005; 94640; 99283; 99284

== ENCOUNTER 2021-08-11 20:41 | Emergency (ER) | payer SELFPAY ==
--- NOTE | ~2021-08-11 | XR_ITS ---
EXAMINATION: XR CHEST CLINICAL INFORMATION: Cough and SOB. COMPARISON: None TECHNIQUE: 2 views of the chest were obtained. FINDINGS: The lungs are well-expanded with platelike atelectasis right middle lobe on lateral view. There is no pleural effusion or thickening. The heart size and progress clarities normal. No gross bony abnormality seen. XR/XR chest 2V IMPRESSION: Right middle lobe platelike atelectasis
[2021-08-11 20:52] VITALS: BP 137/81; PULSE 105; RESP 18; TEMP 37.1; O2SAT 99; BMI 33.4
--- NOTE | 2021-08-11 21:40 | PC.NURSE ---
patient reports dx w/ bronchitis 2 weeks ago. continues w/ persistent dry cough w/ chest wall pain and right rib pain. skin pwd, resp even and non labored, lungs CTA, speaking in full, clear sentences. awaiting initial provider eval.
--- NOTE | 2021-08-11 22:10 | ED_ITS ---
HPI - URI/Sore Throat General Chief Complaint: Upper Respiratory Symptoms Stated Complaint: bronchitis Time Seen by Provider: 08/11/21 22:09 Source: patient Mode of arrival: ambulatory History of Present Illness HPI Narrative: 31-year-old female with a past medical history of bronchitis diagnosed on 07/31/2021 presenting to the ED complaining of persistent nonproductive cough x weeks with associated SOB and chest discomfort when coughing. 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 Reports shortness of breath is worse at night, feels during coughing fits cannot not catch her breath. Was evaluated in the ED on 07/31 for similar symptoms, labs, CXR, and viral testing negative, was prescribed prednisone and albuterol without relief. Admits tested negative for COVID-19 yesterday at home. Denies fever, ear pain, sore throat, recent travel, pedal edema, history of clots MD elicited complaint: cough and nasal congestion Onset (ago): week(s) Related Data Previous Rx's Medication Instructions Recorded cephalexin 500 mg capsule 500 mg PO Q12H 5 days #10 caps 07/14/21 albuterol sulfate 90 mcg/actuation 1 inh inhalation QID PRN shortness 07/31/21 aerosol inhaler of breath or wheezing #8.5 grams prednisone 20 mg tablet 20 mg PO BID #10 tabs 07/31/21 acetaminophen 500 mg tablet 500 mg PO Q6H PRN fever or pain 08/11/21 (Tylenol Extra Strength) #14 tabs albuterol sulfate 2.5 mg/0.5 mL 5 mg inhalation Q4H PRN shortness 08/11/21 solution for nebulization of breath or wheezing #30 ea azithromycin 250 mg tablet See Rx Instructions PO .COMPLEX #6 08/11/21 tabs benzonatate 200 mg capsule 200 mg PO TID PRN cough #14 caps 08/11/21 dextromethorphan-guaifenesin 5 10 ml PO Q4-8H PRN cough #118 mL 08/11/21 mg-100 mg/5 mL oral liquid (Robitussin Cough-Chest Congestion DM) Allergies Allergy/AdvReac Type Severity Reaction Status Date / Time No Known Allergies Allergy Verified 07/13/21 19:38 lactose Allergy Unknown Unknown Uncoded 07/13/21 19:38 Review of Systems Review of Systems: Constitutional: No Fever, No Chills, No Fatigue, No Malaise ENT/Mouth: No Ear Pain, + Nasal Congestion, No Sinus Pain, No Hoarseness, No sore throat, + Rhinorrhea, No Swallowing Difficulty Eyes: No Eye Pain, No Swelling, No Redness, No Foreign Body, No Discharge, No Vision Changes Cardiovascular: +Chest Pain when coughing, + SOB, + Dyspnea on Exertion, + Orthopnea, No Edema, No Palpitations Respiratory: + Cough, No Sputum, No Wheezing, No Smoke Exposure, No Dyspnea Gastrointestinal: No Nausea, No Vomiting, No Abdominal pain Genitourinary: No Dysuria, No Urinary Frequency, No Flank Pain, No Urinary Flow Changes, No Hesitancy Musculoskeletal: No joint pain, No Myalgias, No Joint Swelling Skin: No Skin Lesions, No rash Neuro: No Weakness, No Dizziness, No Headache Yes all other systems are reviewed and are negative [facility] Past Medical History Attestation statement: The following information was validated with the patient. Surgical History Epidermal cyst Family History Family History Father HTN (hypertension) Cancer Diabetes mellitus Unknown family medical history Mother HTN (hypertension) Maternal Grandmother No problems noted. Maternal Grandfather Unknown family medical history Paternal Grandmother Unknown family medical history Cancer Paternal Grandfather Unknown family medical history Brother No problems noted. Sister No problems noted. Sister No problems noted. Social History Social History Household Members Other:: , no children, works in school cafeteria Housing: House Patient Tobacco Use Status: Never used Tobacco Advance Directives: No Advance Directives Information Provided: No Current occupational status: employed Cognitive needs: No Hearing needs: No Vision needs: No Physical Exam Vital Signs: Vital Signs: Last Vital Signs Temp 98.7 F 08/11/21 20:52 Pulse 105 H 08/11/21 20:52 Resp 18 08/11/21 20:52 BP 137/81 08/11/21 20:52 Pulse Ox 99 08/11/21 20:52 O2 Del Method 08/11/21 20:52 BMI result Body Mass Index 33.4 Const: General: cooperative, healthy appearing and no acute distress Orientation/consciousness: patient oriented x3 Limitations: no limitations HEENT: Head: Yes normal to inspection and Yes atraumatic Ears: hearing grossly normal bilaterally, external ears normal, TM's normal bilaterally and mastoids normal General nose exam: Normal external nose present and Nasal discharge present Face and sinus: Yes normal facial exam Mouth: Normal oral and palatal mucosa present Throat: Yes posterior oropharynx normal, Yes tonsils normal, Yes uvula midline, No peritonsillar mass and No uvular edema Eyes: General: appearance normal, both eyes and all related structures EOM: EOMs intact bilaterally Neck: Neck: Yes normal visual inspection and Yes no meningeal signs Chest: Chest palpation & inspection: normal inspection of the chest Resp: Effort & Inspection: normal respiratory effort, no respiratory distress and no stridor Auscultation: clear to auscultation bilaterally, no crackles, no rales, no rhonchi and no wheezes Cardio: Rate: regular rate Heart sounds: S1 normal heart sound present and S2 normal heart sound present Skin: Rashes: no rashes Wounds: no wounds Neuro: General: patient oriented x3, tone normal and no meningeal signs Gait exam (Neuro): Normal gait present Extrem: General: Yes normal to inspection, Yes no pedal edema and Yes no calf tenderness Course Course Course Narrative: --COVID-19 and influenza negative XR chest 2V IMPRESSION: Right middle lobe platelike atelectasis >> Will give patient antibiotics for acute persistent bronchitis. patient given 1st dose of Zithromax, Hycodan, and Tessalon Perle in the emergency department. Results discussed including worrisome signs and symptoms and strict return precautions and need a close follow-up with PCP MDM - URI/Sore Throat MDM Narrative Medical decision making narrative: 31-year-old female with a past medical history of bronchitis diagnosed on 07/31/2021 presenting to the ED complaining of persistent nonproductive cough x weeks with associated SOB and chest discomfort when coughing. On exam tachycardic likely from coughing during evaluation, NAD, nontoxic appearing, lungs CTA, no pedal edema/calf tenderness. Concern for bronchitis vs viral sy ndrome vs pneumonia. Symptoms atypical for ACS/PE Plan: COVID-19/influenza testing, CXR, cough suppressant No need for repeat labs at this time as labs less than 2 weeks ago were unremarkable when patient presented for same symptoms. Differential Diagnosis Differential diagnosis: Likely upper respiratory infection, sinusitis, viral inf ection, bronchitis, influenza and pharyngitis Medical Records Attestation: I reviewed the patient's medical records. Lab Data Attestation: I reviewed the patient's lab results. Labs: Lab Results 08/11/21 08/11/21 Range/Units 23:01 23:01 COVID-19 ([facility]) Negative (Negative) COVID-19 Clin Com See Note Influenza Type A ([facility]) Negative (Negative) Influenza Type B ([facility]ERTAD) Negative (Negative) Influenza A & B Note See Note Discharge Plan Discharge Clinical Impression: Bronchitis Patient Disposition: Home, Self-Care Instructions: Acute Bronchitis (ED) Additional Instructions: You tested negative for COVID-19, the flu in her x-ray was unremarkable. Use nebulizer machine at home. In addition Azithromycin is an antibiotic take as prescribed. Tessalon Perles are for cough, take as needed. Robitussin DM will also aid with cough, take as prescribed/as needed Please have close follow-up with her doctor, if symptoms persist or worsen or you have fever, constant or worsening shortness of breath please return to the emergency department Prescriptions: New azithromycin 250 mg tablet See Rx Instructions .ROUTE .COMPLEX Qty: 6 0RF Rx Instructions: take 500 mg today (day 1), then 250 mg for 4 days (days 2-5) benzonatate 200 mg capsule 200 mg PO TID PRN (Reason: cough) Qty: 14 0RF acetaminophen [Tylenol Extra Strength] 500 mg tablet 500 mg PO Q6H PRN (Reason: fever or pain) Qty: 14 0RF albuterol sulfate 2.5 mg/0.5 mL solution for nebulization 5 mg inhalation Q4H PRN (Reason: shortness of breath or wheezing) Qty: 30 0RF Robitussin Cough-Chest Rajinder DM 5-100 mg/5 mL liquid 10 ml PO Q4-8H PRN (Reason: cough) Qty: 118 0RF No Action cephalexin 500 mg capsule 500 mg PO Q12H 5 Days Qty: 10 0RF prednisone 20 mg tablet 20 mg PO BID Qty: 10 0RF albuterol sulfate 90 mcg/actuation HFA aerosol inhaler 1 inh inhalation QID PRN (Reason: shortness of breath or wheezing) Qty: 8.5 0RF Referrals: Physician,Nonstaff [Primary Care Provider] - 3 days
[2021-08-11] MEDS: Benzonatate 100 MG CAPSULE 200 MG PO (22:58)
[2021-08-11] MEDS: HYDROcodone/Homat 5/1.5/5 ML 5 ML SYRUP PO (22:59)
[2021-08-11 23:25] LABS: COVID-19 Test Negative (Negative); IDNOW Serial# 55D5AD1C; Influenza A Negative (Negative); Influenza B2 Negative (Negative)
[2021-08-12 00:04] VITALS: RESP 16
[2021-08-12] MEDS: Azithromycin 500 MG TABLET PO (00:04)
== END 2021-08-12 00:10 | disposition home or self-care (01) ==
PROVIDERS: Physician Assistant; Emergency Provider Internal Medicine
DX: J40 Bronchitis, not specified as acute or chronic (principal); Z20.822 Contact with and (suspected) exposure to COVID-19
CPT/HCPCS: 71046; 87502; 87635; 99283

== ENCOUNTER 2022-02-24 01:47 | Emergency (ER) | payer OTHER, SELFPAY ==
--- NOTE | ~2022-02-24 | CT_ITS ---
EXAMINATION: CT ABDOMEN AND PELVIS WITHOUT CONTRAST CLINICAL INFORMATION: Abdominal pain and vomiting COMPARISON: 10/23/2015 TECHNIQUE: Multidetector volumetric imaging was performed from the superior aspect of the liver through the pubic symphysis. Sagittal and coronal reformatted images were obtained on the technologist's workstation. This CT examination was performed using dose optimization techniques as appropriate, variously including the following: *Automated exposure control *Adjustment of mA and/or kV according to patient size (this includes techniques or standardized protocols for targeted exams where dose is matched to indication/reason for exam; i.e. extremities or head) *Use of iterative reconstruction technique DLP: 794 mGy-cm FINDINGS: LUNG BASES: The visualized lung bases are unremarkable. LIVER, GALLBLADDER, AND BILIARY TREE: The liver is normal in size and shape. Hepatic steatosis. No focal hepatic lesion or biliary ductal dilatation is present. Gallbladder unremarkable. PANCREAS: Unremarkable. SPLEEN: Unremarkable. ADRENAL GLANDS: Unremarkable. KIDNEYS AND URETERS: The kidneys are normal in size, shape, and attenuation. Stable subcentimeter excrescence emanating from the posterior interpolar cortex of left kidney compatible with a benign cyst. No follow-up required. No hydronephrosis, hydroureter, or calculi seen. No perinephric stranding. BLADDER: Unremarkable. GASTROINTESTINAL TRACT: The small and large bowel are unremarkable. The appendix is unremarkable. ABDOMINAL WALL: No significant hernia is appreciated. LYMPH NODES: Normal. VASCULAR: Unremarkable. PELVIC VISCERA: Unremarkable. OSSEOUS STRUCTURES: Unremarkable. CT/CT abdomen pelvis wo IV con IMPRESSION: No acute findings. Hepatic steatosis. Fleischner guidelines were followed.
[2022-02-24 01:55] VITALS: BP 134/86; PULSE 117; RESP 18; TEMP 37; O2SAT 96; BMI 33.2
--- NOTE | 2022-02-24 02:49 | ED_ITS ---
HPI - Abdominal Pain General Chief Complaint: Abdominal Pain Stated Complaint: abdominal pain Time Seen by Provider: 02/24/22 02:36 Source: patient Mode of arrival: ambulatory Limitations: no limitations History of Present Illness HPI narrative: 31-year-old female came in for evaluation of abdominal pain, vomiting. Patient's symptoms started about 2 days ago with epigastric pain going down to the left side of the abdomen, patient had a 1 time diarrhea the 1st day then now having normal bowel movement, patient been having nausea and vomiting unable to keep anything down in her stomach, patient feels dehydrated and weak. No sick contacts, no recent travel, no recent use of antibiotic. No abdominal surgery history. Related Data Previous Rx's Medication Instructions Recorded cephalexin 500 mg capsule 500 mg PO Q12H 5 days #10 caps 07/14/21 albuterol sulfate 90 mcg/actuation 1 inh inhalation QID PRN shortness 07/31/21 aerosol inhaler of breath or wheezing #8.5 grams prednisone 20 mg tablet 20 mg PO BID #10 tabs 07/31/21 acetaminophen 500 mg tablet 500 mg PO Q6H PRN fever or pain 08/11/21 (Tylenol Extra Strength) #14 tabs albuterol sulfate 2.5 mg/0.5 mL 5 mg inhalation Q4H PRN shortness 08/11/21 solution for nebulization of breath or wheezing #30 ea azithromycin 250 mg tablet See Rx Instructions PO .COMPLEX #6 08/11/21 tabs benzonatate 200 mg capsule 200 mg PO TID PRN cough #14 caps 08/11/21 dextromethorphan-guaifenesin 5 10 ml PO Q4-8H PRN cough #118 mL 08/11/21 mg-100 mg/5 mL oral liquid (Robitussin Cough-Chest Congestion DM) omeprazole magnesium 20 mg 20 mg PO BID #30 tabs 02/24/22 tablet,delayed release (Prilosec OTC) Allergies Allergy/AdvReac Type Severity Reaction Status Date / Time No Known Allergies Allergy Verified 07/13/21 19:38 lactose Allergy Unknown Unknown Uncoded 07/13/21 19:38 Review of Systems Review of Systems All other systems are reviewed and are negative Constitutional: Reports as per HPI and Reports no additional constitutional complaints Eyes: Reports as per HPI and Reports no additional eye complaints Reports system reviewed and no additional complaints, except as documented Cardiovascular: Reports as per HPI and Reports no additional cardiovascular complaints Respiratory: Reports as per HPI and Reports no additional respiratory complaints Gastrointestinal: Reports as per HPI and Reports no additional gastrointestinal complaints Genitourinary: Reports no additional female genitourinary complaints Musculoskeletal: Reports no additional musculoskeletal complaints Skin/Breast: Reports system reviewed and no additional complaints, except as docu Psychiatric: Reports no additional psychiatric complaints Endocrine: Reports no additional endocrine complaints Hematologic/Lymphatic: Reports no additional hematologic/lymphatic complaints Allergic/Immunologic: Reports no additional allergic/immunologic complaints Reports system reviewed and no additional complaints, except as documented and Reports Abnormal speech present FORMERLY [facility], [facility] Past Medical History Medical History Annual physical exam Hyperlipidemia Normal pelvic exam Surgical History Epidermal cyst Family History Family History Father HTN (hypertension) Cancer Diabetes mellitus Unknown family medical history Mother HTN (hypertension) Maternal Grandmother No problems noted. Maternal Grandfather Unknown family medical history Paternal Grandmother Unknown family medical history Cancer Paternal Grandfather Unknown family medical history Brother No problems noted. Sister No problems noted. Sister No problems noted. Social History Social History Household Members Other:: , no children, works in school cafeteria Housing: House Patient Tobacco Use Status: Never used Tobacco Advance Directives: No Advance Directives Information Provided: Yes Current occupational status: employed Cognitive needs: No Hearing needs: No Vision needs: No Physical Exam ED Vital Signs: Vital Signs - 24 hr 02/24/22 01:55 02/24/22 04:13 Temperature 98.6 F 98.5 F Pulse Rate 117 H 100 Respiratory Rate 18 18 Blood Pressure 134/86 126/78 Pulse Oximetry 96 98 Oxygen Delivery Method Room Air Room Air BMI result Body Mass Index 33.2 vital signs have been reviewed as appeared to be correct. Blood pressure normal. Heart rate normal. Respiration rate normal. Temperature normal. Oxygen saturation normal. Appearance: Alert. Oriented X3. No acute distress. Head: Normal external exam. Normocephalic. Atraumatic. No Espinosa signs noted. No raccoon eyes noted Eyes: PERRLA. EOMI. Conjunctiva and sclera normal. Eyelids normal. ENT: TM's Normal. Pharynx normal. Uvula midline. Moist mucous membranes. No trismus noted. No drooling noted. No muffled voice noted. Neck: Normal inspection. Neck supple. FROM. No adenopathy. Thyroid Normal. No meningeal signs. No neck mass noted. CVS: Normal heart rate and rhythm. Heart sound normal. No murmurs noted. Pulses normal throughout. Respiratory: No respiratory distress. Painless inspiration. Breath sounds normal. No wheezes/rales/rhonchi noted. Chest nontender. No accessory muscle usage noted or decreased air movement noted. Abdomen: Soft and nontender. Bowel sounds normal in all 4 quadrants. No distention noted. No organomegaly noted. No visible injury noted. Back: No CVA tenderness. Full range of motion noted. Skin: Skin warm and dry. Normal skin color. Normal skin turgor. No rashes/lesions/lacerations noted. Extremities: No lower extremity edema. Extremities exhibit normal range of motion. Extremities nontender. Neuro: Oriented X 3. Cranial nerve exam: II-XII are grossly intact No motor deficit. No sensory deficit. Reflexes normal. Course Course Course Narrative: patient in the emergency department received IV fluid / Pepcid/ Maalox patient felt better after the medicine and able to tolerate p.o. intake with no nausea vomiting. Patient with leukocytosis but no acute intra-abdominal pathology on the CT. Will start the patient on Prilosec and follow-up with GI as an outpatient. Medical Decision Making Differential Diagnosis Differential Diagnoses: The differential diagnosis associated with the presentation includes ( Appendicitis, pancreatitis, kidney stone, gallbladder problem, gastritis.) Lab Data MDM Lab Attestation statement: I reviewed the patient's lab results. Result Diagrams: 02/24/22 02:56 02/24/22 02:56 Labs: Lab Results 02/24/22 02/24/22 12 Range/Units 02:56 02:56 02:56 WBC 15.3 H (4.8-10.8) X10*3/uL RBC 4.78 (4.20-5.50) X10*6/uL Hgb 13.3 (12.0-16.0) g/dl Hct 41.2 (37.0-47.0) % MCV 86.2 (80.0-98.0) fL MCH 27.8 (27.0-33.0) pg MCHC 32.3 (31.0-35.0) g/dl RDW 12.9 (11.0-16.0) % Plt Count 342 (160-400) X10*3/uL MPV 9.4 (9.4-12.3) fL Immature Gran % (Auto) 0.3 (0.0-0.4) % Neut % (Auto) 86.9 H (45-73) % Lymph % (Auto) 7.8 L (20-40) % Robeson % (Auto) 4.1 (2-11) % Eos % (Auto) 0.7 (0-4) % Baso % (Auto) 0.2 (0-2) % Lymph # (Auto) 1.2 (1.2-4.9) X10*3/uL Robeson # (Auto) 0.6 (0.1-1.2) X10*3/uL Eos # (Auto) 0.1 (0.0-0.4) X10*3/uL Baso # (Auto) 0.0 (0.0-0.2) X10*3/uL Abs Immat Gran (auto) 0.05 H (0.00-0.03) X10*3/uL Absolute Neuts (auto) 13.3 H (2.0-8.3) x10*3/uL Absolute Nucleated RBC 0.000 (0.0-0.012) X10*3/uL Nucleated RBC % (auto) 0.0 (0.0-0.2) /100WBC Sodium 140 (135-145) mmol/L Potassium 4.4 D (3.3-5.1) mmol/L Chloride 104 (96-108) mmol/L Carbon Dioxide 29 (22-29) mmol/L Anion Gap 11 L (12-20) BUN 12 (9-16) mg/dL Creatinine 0.75 (0.5-1.4) mg/dL Estim Creat Clear Calc 122.8 Estimated GFR > 60 Random Glucose 123 H (60-115) mg/dL Calcium 9.6 D (8.4-10.2) mg/dL Total Bilirubin 0.5 (0.0-1.0) mg/dL Direct Bilirubin 0.2 (0.0-0.5) mg/dL AST 19 (5-31) U/L ALT 18 (0-31) U/L Alkaline Phosphatase 80 (39-117) U/L Total Protein 7.7 (6.5-8.0) g/dL Albumin 4.2 (3.5-5.0) g/dL Lipase 11 (8-78) U/L Urine Color Urine Appearance Urine pH (5.0-9.0) Ur Specific [place] (1.005-1.025) Urine Protein (Neg-Trace) mg/dL Urine Glucose (UA) (Negative) mg/dL Urine Ketones (Negative) mg/dL Urine Blood (Negative) Urine Nitrite (Negative) Ur Leukocyte Esterase (Negative) Urine RBC (0-2) /HPF Urine WBC (0-5) /HPF Ur Squamous Epith Cells (0-2) /HPF Urine Bacteria (None Seen) Hyaline Casts (0-2) /LPF Urine Test (NEGATIVE) Influenza Type A (PCR) NEGATIVE (Negative) Influenza Type B (PCR) NEGATIVE (Negative) RSV RNA Qual (PCR) NEGATIVE (Negative) SARS-CoV-2 RNA (RT-PCR) NEGATIVE (Negative) 02/24/22 02/24/22 Range/Units 03:15 03:15 WBC (4.8-10.8) X10*3/uL RBC (4.20-5.50) X10*6/uL Hgb (12.0-16.0) g/dl Hct (37.0-47.0) % MCV (80.0-98.0) fL MCH (27.0-33.0) pg MCHC (31.0-35.0) g/dl RDW (11.0-16.0) % Plt Count (160-400) X10*3/uL MPV (9.4-12.3) fL Immature Gran % (Auto) (0.0-0.4) % Neut % (Auto) (45-73) % Lymph % (Auto) (20-40) % Robeson % (Auto) (2-11) % Eos % (Auto) (0-4) % Baso % (Auto) (0-2) % Lymph # (Auto) (1.2-4.9) X10*3/uL Robeson # (Auto) (0.1-1.2) X10*3/uL Eos # (Auto) (0.0-0.4) X10*3/uL Baso # (Auto) (0.0-0.2) X10*3/uL Abs Immat Gran (auto) (0.00-0.03) X10*3/uL Absolute Neuts (auto) (2.0-8.3) x10*3/uL Absolute Nucleated RBC (0.0-0.012) X10*3/uL Nucleated RBC % (auto) (0.0-0.2) /100WBC Sodium (135-145) mmol/L Potassium (3.3-5.1) mmol/L Chloride (96-108) mmol/L Carbon Dioxide (22-29) mmol/L Anion Gap (12-20) BUN (9-16) mg/dL Creatinine (0.5-1.4) mg/dL Estim Creat Clear Calc Estimated GFR Random Glucose (60-115) mg/dL Calcium (8.4-10.2) mg/dL Total Bilirubin (0.0-1.0) mg/dL Direct Bilirubin (0.0-0.5) mg/dL AST (5-31) U/L ALT (0-31) U/L Alkaline Phosphatase (39-117) U/L Total Protein (6.5-8.0) g/dL Albumin (3.5-5.0) g/dL Lipase (8-78) U/L Urine Color Yellow Urine Appearance Clear Urine pH 7.5 (5.0-9.0) Ur Specific [place] 1.025 (1.005-1.025) Urine Protein Trace (Neg-Trace) mg/dL Urine Glucose (UA) Negative (Negative) mg/dL Urine Ketones Negative (Negative) mg/dL Urine Blood Negative (Negative) Urine Nitrite Negative (Negative) Ur Leukocyte Esterase Trace H (Negative) Urine RBC 0-2 (0-2) /HPF Urine WBC 0-5 (0-5) /HPF Ur Squamous Epith Cells 0-2 (0-2) /HPF Urine Bacteria None Seen (None Seen) Hyaline Casts 0-2 (0-2) /LPF Urine Test NEGATIVE (NEGATIVE) Influenza Type A (PCR) (Negative) Influenza Type B (PCR) (Negative) RSV RNA Qual (PCR) (Negative) SARS-CoV-2 RNA (RT-PCR) (Negative) Independent Interpretation I performed an independent interpretation of an: CT Scan ( Abdomen and pelvis: No acute intra-abdominal pathology.) Radiology Impression Discussion of test interpretation with radiology: I have reviewed the radiologist's reading. Medications Administered Discontinued Medications Generic Name Dose Route Start Last Admin Trade Name Freq PRN Reason Stop Dose Admin Al Hydroxide/Mg Hydroxide 30 ml 02/24/22 02:47 02/24/22 03:48 Magnesium Hydrox/Alum Hydrox 30 Ml Oral.Susp PO 02/24/22 02:48 30 ml ONCE ONE Administration Famotidine 20 mg 02/24/22 02:47 02/24/22 03:46 Famotidine/Pf 20 Mg/2 Ml Vial IVPUSH 02/24/22 02:48 20 mg ONCE ONE Administration Sodium Chloride 1,000 mls @ 999 mls/hr 02/24/22 02:47 02/24/22 03:46 Ns IV 02/24/22 03:47 999 mls/hr .Q1H1M ONE Administration Ondansetron HCl 4 mg 02/24/22 02:47 02/24/22 03:46 Ondansetron Hcl 4 Mg/2 Ml Vial IVPUSH 02/24/22 02:48 4 mg ONCE ONE Administration Discharge Plan Discharge Clinical Impression: Abdominal pain, Gastritis Patient Disposition: Home, Self-Care Instructions: Gastritis (ED) Prescriptions: New omeprazole magnesium [Prilosec OTC] 20 mg tablet,delayed release (DR/EC) 20 mg PO BID Qty: 30 0RF No Action cephalexin 500 mg capsule 500 mg PO Q12H 5 Days Qty: 10 0RF prednisone 20 mg tablet 20 mg PO BID Qty: 10 0RF albuterol sulfate 90 mcg/actuation HFA aerosol inhaler 1 inh inhalation QID PRN (Reason: shortness of breath or wheezing) Qty: 8.5 0RF azithromycin 250 mg tablet See Rx Instructions .ROUTE .COMPLEX Qty: 6 0RF Rx Instructions: take 500 mg today (day 1), then 250 mg for 4 days (days 2-5) benzonatate 200 mg capsule 200 mg PO TID PRN (Reason: cough) Qty: 14 0RF acetaminophen [Tylenol Extra Strength] 500 mg tablet 500 mg PO Q6H PRN (Reason: fever or pain) Qty: 14 0RF albuterol sulfate 2.5 mg/0.5 mL solution for nebulization 5 mg inhalation Q4H PRN (Reason: shortness of breath or wheezing) Qty: 30 0RF Robitussin Cough-Chest Rajinder DM 5-100 mg/5 mL liquid 10 ml PO Q4-8H PRN (Reason: cough) Qty: 118 0RF Referrals: Esther Flores MD [Physician] -
[2022-02-24 03:02] LABS: MANUAL DIFF FLAG NO
[2022-02-24 03:03] LABS: Basophils Percent Auto 0.2 % (0-2); Eosinophils Absolute Auto 0.1 X10*3/uL (0.0-0.4); Eosinophils Percent Auto 0.7 % (0-4); Hematocrit 41.2 % (37.0-47.0); Hemoglobin 13.3 g/dl (12.0-16.0); Imm Gran Abs Auto 0.05 X10*3/uL (0.00-0.03); Imm Gran Pct Auto 0.3 % (0.0-0.4); Lymphocytes Absolute Auto 1.2 X10*3/uL (1.2-4.9); Lymphocytes Percent Auto 7.8 % (20-40); Mean Corpuscular HGB Conc 32.3 g/dl (31.0-35.0); Mean Corpuscular Hemoglobin 27.8 pg (27.0-33.0); Mean Corpuscular Volume 86.2 fL (80.0-98.0); Mean Platelet Volume 9.4 fL (9.4-12.3); Monocytes Absolute Auto 0.6 X10*3/uL (0.1-1.2); Monocytes Percent Auto 4.1 % (2-11); Neutrophils Absolute Auto 13.3 x10*3/uL (2.0-8.3); Neutrophils Percent Auto 86.9 % (45-73); Platelet Count 342 X10*3/uL (160-400); Red Blood Count 4.78 X10*6/uL (4.20-5.50); Red Cell Distribution Width 12.9 % (11.0-16.0); White Blood Count 15.3 X10*3/uL (4.8-10.8)
[2022-02-24 03:24] LABS: Alanine Aminotransferase 18 U/L (0-31); Albumin Level 4.2 g/dL (3.5-5.0); Alkaline Phosphatase 80 U/L (39-117); Anion Gap 11 (12-20); Aspartate Amino Transferase 19 U/L (5-31); Bilirubin Direct 0.2 mg/dL (0.0-0.5); Bilirubin Total 0.5 mg/dL (0.0-1.0); Blood Urea Nitrogen 12 mg/dL (9-16); Calcium 9.6 mg/dL (8.4-10.2); Carbon Dioxide 29 mmol/L (22-29); Chloride 104 mmol/L (96-108); Creatinine Clr Calc Pharmacy 122.8; Estimated Glomerular Filt Rate > 60; Glucose Random 123 mg/dL (60-115); Lipase 11 U/L (8-78); Potassium 4.4 mmol/L (3.3-5.1); Sodium 140 mmol/L (135-145); Total Protein 7.7 g/dL (6.5-8.0)
[2022-02-24 03:25] LABS: Appearance Urine Clear; Color Urine Yellow; Glucose Urine UA Negative (Negative); Leukocyte Esterase Urine Trace (Negative); Nitrite Urine Negative (Negative); PH 7.5 (5.0-9.0); Specific Gravity - Urine 1.025 (1.005-1.025); UMIC TRIGGER UACC YES; Urine Blood Negative (Negative); Urine Ketones Negative (Negative); Urine Protein Trace mg/dL (Neg-Trace)
[2022-02-24 03:27] LABS: UPreg QC Valid YES; Urine Pregnancy NEGATIVE (NEGATIVE)
[2022-02-24 03:39] LABS: Influenza A PCR NEGATIVE (Negative); Influenza B PCR NEGATIVE (Negative); Resp Syncy Virus RNA Qual PCR NEGATIVE (Negative); SARS COV2 PCR INHOUSE NEGATIVE (Negative)
[2022-02-24 03:46] LABS: Bacteria Urine None Seen (None Seen); Hyaline Casts Urine 0-2 /LPF (0-2); RBC Urine 0-2 /HPF (0-2); Squamous Epithelial Cell Urine 0-2 /HPF (0-2); WBC Urine 0-5 /HPF (0-5)
[2022-02-24] MEDS: Famotidine/PF 20 MG/2 ML VIAL IVPUSH (03:46)
[2022-02-24] MEDS: 0.9 % Sodium Chloride 1,000 ML 999 ML IV (03:46)
[2022-02-24] MEDS: ondansetron HCL 4 MG/2 ML VIAL IVPUSH (03:46)
[2022-02-24] MEDS: Magnesium Hydrox/Alum Hydrox 30 ML ORAL.SUSP PO (03:48)
[2022-02-24 04:13] VITALS: BP 126/78; PULSE 100; RESP 18; TEMP 36.9; O2SAT 98
== END 2022-02-24 06:09 | disposition home or self-care (01) ==
PROVIDERS: Emergency Provider Emergency Medicine
DX: K29.70 Gastritis, unspecified, without bleeding (principal); Z20.822 Contact with and (suspected) exposure to COVID-19; Z79.899 Other long term (current) drug therapy
CPT/HCPCS: 0241U; 74176; 80048; 80076; 81001; 81025; 83690; 85025; 96361; 96374; 96375; 99283; 99284; J2405

== ENCOUNTER 2022-11-29 12:03 | Outpatient (AMB) | payer OTHER, SELFPAY ==
[2022-11-29 12:54] VITALS: BP 122/68; PULSE 121; TEMP 36.8; O2SAT 97; BMI 32.3
--- NOTE | 2022-11-29 12:54 | AM.OFFWIN_ITS ---
Intake Vital Signs 11/29/22 12:54 Height 5 ft 6 in Weight 90.718 kg BMI 32.3 BP 122/68 Blood Pressure Location Lt brachial Position Sitting Pulse 121 H Pulse Source Pulse Oximeter Temp 98.2 F Temp Source Temporal Artery Scan Pulse Oximetry (%) 97 Intake Visit Reasons: EP, sore throat (masked) Intake Note: pt is here for c/o sore throat Patient Tobacco Use Status: Never used Tobacco Allergies lactose Allergy (Verified 11/29/22 12:55) Unknown Do you need a note to return to daycare/school/sports/work: Yes HPI HPI Comments History of Present Illness Details 1322 32-year-old female presents with fatigue , malaise, sore throat, myalgias, recently return from a trip back from [facility], all family members at [employer] with her tested positive for COVID. She has not tested yet. She tells me she feels chest pressure and at times is coughing however no pain. Patient denies shortness of breath. She denies fevers, chills, leg swelling. Physical examination initially patient tachycardic however on my examination she was not tachycardic heart rate of between 86 and 90 beats per minute. Regular rhythm. History and physical exam concerning for viral illness and COVID-19. Unlikely PE, pneumonia, ACS. Plan COVID test. Educated on CDC guidelines and supportive measures. Educated patient on diagnosis and treatment plan, answered all question, patient verbalizes understanding. At this time patient will be discharged home, advised to return with new or worsening symptoms. Educated on worrisome signs and symptoms and when to return. At this time I feel comfortable discharge home. [facility] Medical History Hyperlipidemia Normal pelvic exam Annual physical exam Surgical History Epidermal cyst Family History Father HTN (hypertension) Cancer Diabetes mellitus Unknown family medical history Mother HTN (hypertension) Maternal Grandmother No problems noted. Maternal Grandfather Unknown family medical history Paternal Grandmother Unknown family medical history Cancer Paternal Grandfather Unknown family medical history Brother No problems noted. Sister No problems noted. Sister No problems noted. Social History Household Members Other:: , no children, works in school cafeteria Housing: House Patient Tobacco Use Status: Never used Tobacco Current occupational status: employed Cognitive needs: No Hearing needs: No Vision needs: No Review of Systems Const Details: Constitutional : No Weight loss, No Fever, No Chills, + Fatigue, + Malaise ENT/Mouth : No sore throat, No Rhinorrhea Eyes: No Eye Pain, No Swelling, No Redness Cardiovascular : No Chest Pain, No SOB, No Dyspnea on Exertion, No Orthopnea, No Edema, No Palpitations Respiratory : + Cough, No Sputum, No Wheezing Gastrointestinal : No Nausea, No Vomiting, No Diarrhea, No Constipation, No abdominal Pain, No Hematochezia, No Melena Genitourinary : No Dysuria, No Urinary Frequency, No Hematuria, Musculoskeletal : No joint pain, No Myalgias, No Joint Swelling Skin : No Skin Lesions, No rash Neuro : No Weakness, No Numbness, No Dizziness, No Headache Psych : No Anxiety/Panic, No Depression All other systems reviewed and are negative All systems reviewed & are unremarkable except as noted in HPI and below Physical Exam Vital Signs: Last Vital Signs Temp 98.2 F 11/29/22 12:54 Pulse 121 H 11/29/22 12:54 BP 122/68 11/29/22 12:54 Pulse Ox 97 11/29/22 12:54 BMI result Body Mass Index 32.3 vss Initially tachycardic however on my exam she was not ( likely viral ilness) Appearance: Alert.? Oriented X3.? No acute distress.? Head: Normocephalic, atraumatic, no step-offs or deformities Eyes: Pupils equal, round and reactive to light.? ENT: Pharynx normal.? Neck: Normal inspection.? Neck supple.? CVS: Normal heart rate and rhythm.? Pulses normal.? Respiratory: No respiratory distress.? Breath sounds normal.? Abdomen: Soft and nontender.? Skin: Skin warm and dry.? Normal skin color.? Normal skin turgor.? Extremities: No lower extremity edema.? No calf ttp. 5/5 strength to bilateral upper and lower extremities Neuro: Oriented X 3.? No motor deficit.? No sensory deficit. CN 2-12 intact Results AMB Rapid Strep AMB Rapid Strep Negative Last Edit by Jordi Granda CMA on 11/29/22 13 :20 Results Reviewed Results Reviewed: Laboratory Last Values Strep Scn [facility] Negative 11/29/22 13:19 Assessment & Plan Assessment & Plan (1) Viral illness: Code(s): B34.9 - Viral infection, unspecified Plan Take your medications as prescribed. If you were prescribed antibiotics today, it is important that you take your medication to their entirety, do not skip any doses, do not finish them early. Follow-up with your primary care provider this week. Return to the emergency department with new or worsening symptoms. Such as fevers, chills, chest pain, shortness of breath, nausea, vomiting, dizziness, headache, vision changes, lethargy In case of emergency call 911 Orders: Orders AMB Rapid Strep Screen Today Z13.9 - Encounter for screening, unspecified [employer] Covid-19 Ag Today B34.9 - Viral infection, unspecified Coding Level of Care Code Est Pt Level 3 (51852) Diagnoses Viral illness B34.9
== END 2022-11-29 13:47 | disposition home or self-care (01) ==
PROVIDERS: Visit Provider Physician Assistant
DX: J02.9 Acute pharyngitis, unspecified (principal); B34.9 Viral infection, unspecified
CPT/HCPCS: 87880; 99213

== ENCOUNTER 2022-11-29 13:19 | Outpatient (REF) | payer OTHER, SELFPAY ==
[2022-11-29 13:45] LABS: Binax Internal Control QC Valid; Binax Now Covid-19 Ag Negative (Negative); Binax Performed by: HO.BONILM
== END 2022-11-29 13:20 | disposition home or self-care (01) ==
LOC: HO.HMGCLDS 13:19
PROVIDERS: Visit Provider Physician Assistant
DX: B34.9 Viral infection, unspecified (principal); Z20.822 Contact with and (suspected) exposure to COVID-19
CPT/HCPCS: 87811; C9803

== ENCOUNTER 2023-04-27 07:54 | Outpatient (AMB) | payer OTHER, SELFPAY ==
[2023-04-27 08:03] VITALS: BP 122/76; PULSE 90; O2SAT 96; BMI 33.2
--- NOTE | 2023-04-27 08:03 | MHC.PC.OV ---
Vital Signs 04/27/23 08:03 Height 5 ft 6 in Weight 206 lb BMI 33.2 BP 122/76 Blood Pressure Location Lt brachial Position Sitting Pulse 90 Pulse Source Pulse Oximeter Pulse Oximetry (%) 96 Oxygen Delivery Method Room Air Intake Visit Reasons: OVERDUE PE Intake Note: Pt is here today for PE. Allergies lactose Allergy (Verified 04/27/23 08:18) Unknown Medication List - Last Reconciled 04/27/23 by Xi Perez MD No Known Home Meds Tobacco use date assessed: 04/27/23 Dental Screening Dental Screen Date: 04/27/23 Did you have a dental visit in the last 12 months?: No Did you have a dental problem in the last 6 months where you did not have access to dental care?: No Was dental information given to patient?: Patient declined HPI OVERDUE PE HPI Details Pt presents for PE PFSH Medical History Hyperlipidemia Normal pelvic exam Annual physical exam Surgical History Epidermal cyst Family History Father HTN (hypertension) Cancer Diabetes mellitus Unknown family medical history Mother HTN (hypertension) Maternal Grandmother No problems noted. Maternal Grandfather Unknown family medical history Paternal Grandmother Unknown family medical history Cancer Paternal Grandfather Unknown family medical history Brother No problems noted. Sister No problems noted. Sister No problems noted. Social History Household Members Other:: , no children, works in school cafeteria Housing: House Patient Tobacco Use Status: Never used Tobacco e-Cigarette/Vaping Use: Never Used Current occupational status: employed Cognitive needs: No Hearing needs: No Vision needs: Yes Questionnaire PHQ-9 Over the last 2 weeks, how often have you been bothered by any of the following problems? 1. Little interest or pleasure in doing things: several days 2. Feeling down, depressed, or hopeless: several days 3. Trouble falling or staying asleep, or sleeping too much: nearly every day 4. Feeling tired or having little energy: more than half the days 5. Poor appetite or overeating: nearly every day 6. Feeling bad about yourself - or that you are a failure or have let yourself or your family down: not at all 7. Trouble concentrating on things, such as reading the newspaper or watching television: not at all 8. Moving or speaking so slowly that other people could have noticed. Or the opposite - being so fidgety or restless that you have been moving around a lot more than usual: several days 9. Thoughts that you would be better off or of hurting yourself in some way: not at all Total score: 11 Depression Screening Interpretation: Positive (pt follows up with therapist) Depression Screening Follow-up: Existing condition and Declines treatment Depression Screening Done: Yes [id number] - PHQ-9 Billing: Yes Source: Developed by Drs. Ricardo King, Margarita Malone, Kendall Teague and colleagues, with an educational capo from [employer]. Thrive Questionnaire Date Thrive assessed: 04/27/23 I am a: Patient What is your living situation today?: I have a steady place to live Within the past 12 months, did the food you bought not last and you didn't have the money to get more?: Never true Within the past 12 months, did you worry whether your food would run out before you got money to buy more?: Never true Do you have trouble paying for medicines?: No Do you have trouble getting transportation to medical appointments?: No Do you have trouble paying your heating and electricity bill?: No Do you have trouble taking care of your child, family member or friend?: No Do you have trouble with day-to-day activities such as bathing, preparing meals, shopping, managing finances, etc.?: No Are you currently unemployed and looking for a job?: No Are you interested in more education?: Yes Please select the resources that you would like help with: Education Currently or been in a relationship where the following occur: no concerns reported THRIVE Score: 0 AUDIT C Alcohol Use Questionnaire (AUDIT-C) 1. How often do you have a drink containing alcohol?: Never 3. How often do you have six or more drinks on one occasion?: Never Total Score: 0 LAURA-7 AMB Questionnaire LAURA-7 Date LAURA - 7 assessed: 04/27/23 Feeling nervous, anxious, or on edge: 1 = Several days Not being able to stop or control worryin = Several days Worrying too much about different things: 1 = Several days Trouble relaxin = More than half the days Being so restless that it is hard to sit still: 2 = More than half the days Becoming easily annoyed or irritable: 2 = More than half the days Feeling afraid as if something awful might happen: 2 = More than half the days Total LAURA-7 score (0-4 normal; 5-9 mild; 10-14 moderate; 15-21 severe): 11 Source: Developed by Drs. Ricardo King, Margarita Malone, Kendall Teague and colleagues, with an educational capo from [employer]. Review of Systems Const All systems reviewed & are unremarkable except as noted in HPI and below Reports no additional complaints Eyes Reports no additional complaints ENT Reports no additional complaints Card Reports no additional complaints Resp Reports no additional complaints GI Reports no additional complaints Reports no additional complaints Physical exam (Primary Care) Vital Signs: Last Vital Signs Pulse 90 04/27/23 08:03 BP 122/76 04/27/23 08:03 Pulse Ox 96 04/27/23 08:03 Oxygen Delivery Method Room Air 04/27/23 08:03 BMI result Body Mass Index 33.2 Tobacco/Smoking Status: Tobacco use Status Tobacco use date assessed 04/27/23 04/27/23 08:20 Patient Tobacco Use Status Never used Tobacco 04/27/23 08:20 e-Cigarette/Vaping Use Never Used 04/27/23 08:20 PHQ-9: PHQ-9 Score PHQ-9: Total score 11 04/27/23 09:45 Depression Screening Interpretation: Positive (pt follows up with therapist) Depression Screening Follow-up: Existing condition and Declines treatment Thrive Assessment: Date of Thrive Assessment Date Thrive assessed 04/27/23 04/27/23 08:22 Currently or been in a relationship where the following occur: no concerns reported Const General: no acute distress HENMT Head: Yes normal to inspection General nose exam: Normal external nose present Face and sinus: Yes normal facial exam Mouth: Normal oral and palatal mucosa present Throat: Yes posterior oropharynx normal Eyes General: appearance normal, both eyes and all related structures Neck Neck: Yes no lymphadenopathy and Yes supple Resp Effort & Inspection: normal respiratory effort Auscultation: clear to auscultation bilaterally Cardio Rhythm: regular rhythm Heart sounds: S1 normal heart sound present and S2 normal heart sound present GI Inspection: Yes normal to inspection Palpation (GI): Soft to palpation Percussion: Yes normal to percussion Auscultation: normal bowel sounds Assessment and Plan Assessment & Plan (1) Annual physical exam: Code(s): Z00.00 - Encounter for general adult medical examination without abnormal findings Plan: Well-balanced diet regular physical activity discussed with the patient. She will return for fasting blood work. Patient is up-to-date with the Pap smear by claims adjuster (2) Hyperlipidemia: Code(s): E78.5 - Hyperlipidemia, unspecified Plan: Low-cholesterol diet discussed with the patient (3) Enlarged thyroid: Code(s): E04.9 - Nontoxic goiter, unspecified Plan: Obtain thyroid ultrasound to evaluate (4) Anxiety: Code(s): F41.9 - Anxiety disorder, unspecified Plan: Patient is established with counselor and not interested in taking medication Orders: Orders Complete Blood Count Auto Diff Today E78.5 - Hyperlipidemia, unspecified, Z00.00 - Encounter for general adult medical examination without abnormal findings TSH reflex Free T4 Today E78.5 - Hyperlipidemia, unspecified, Z00.00 - Encounter for general adult medical examination without abnormal findings US thyroid Today E01.0 - Iodine-deficiency related diffuse (endemic) goiter, E04.9 - Nontoxic goiter, unspecified Comprehensive [facility]. Panel Fast Today E78.5 - Hyperlipidemia, unspecified, Z00.00 - Encounter for general adult medical examination without abnormal findings Lipid Panel Today E78.5 - Hyperlipidemia, unspecified, Z00.00 - Encounter for general adult medical examination without abnormal findings Hemoglobin A1c Today E78.5 - Hyperlipidemia, unspecified, Z00.00 - Encounter for general adult medical examination without abnormal findings UA and rflx microscopic Today E78.5 - Hyperlipidemia, unspecified, Z00.00 - Encounter for general adult medical examination without abnormal findings Coding Level of Care Code Est Pt Prev Care 18-39y(29136) Diagnoses Annual physical exam Z00.00 Hyperlipidemia E78.5 Enlarged thyroid E04.9 Anxiety F41.9
== END 2023-04-27 08:54 | disposition home or self-care (01) ==
PROVIDERS: Visit Provider Internal Medicine
DX: Z00.00 Encounter for general adult medical examination without abnormal findings (principal); E78.5 Hyperlipidemia, unspecified; E04.9 Nontoxic goiter, unspecified; F41.9 Anxiety disorder, unspecified
CPT/HCPCS: 99395

== ENCOUNTER 2023-04-27 08:38 | Outpatient (REF) | payer OTHER, SELFPAY ==
[2023-04-27 11:18] LABS: MANUAL DIFF FLAG NO
[2023-04-27 11:23] LABS: Basophils Percent Auto 0.4 % (0-2); Eosinophils Absolute Auto 0.1 X10*3/uL (0.0-0.4); Eosinophils Percent Auto 0.6 % (0-4); Hematocrit 39.3 % (37.0-47.0); Hemoglobin 12.8 g/dl (12.0-16.0); Imm Gran Abs Auto 0.05 X10*3/uL (0.00-0.03); Imm Gran Pct Auto 0.5 % (0.0-0.4); Lymphocytes Absolute Auto 3.5 X10*3/uL (1.2-4.9); Lymphocytes Percent Auto 35.1 % (20-40); Mean Corpuscular HGB Conc 32.6 g/dl (31.0-35.0); Mean Platelet Volume 10.1 fL (9.4-12.3); Monocytes Absolute Auto 0.5 X10*3/uL (0.1-1.2); Monocytes Percent Auto 5.2 % (2-11); Neutrophils Absolute Auto 5.8 x10*3/uL (2.0-8.3); Neutrophils Percent Auto 58.2 % (45-73); Platelet Count 394 X10*3/uL (160-400); Red Blood Count 4.57 X10*6/uL (4.20-5.50); Red Cell Distribution Width 13.2 % (11.0-16.0)
[2023-04-27 11:24] LABS: Appearance Urine Turbid; Color Urine Yellow; Glucose Urine UA Negative (Negative); Leukocyte Esterase Urine Negative (Negative); Nitrite Urine Negative (Negative); PH 5.5 (5.0-9.0); Specific Gravity - Urine 1.025 (1.005-1.025); Urine Blood Negative (Negative); Urine Ketones Negative (Negative); Urine Protein Negative (Neg-Trace)
[2023-04-27 12:00] LABS: Alanine Aminotransferase 14 U/L (0-31); Albumin Level 3.9 g/dL (3.5-5.0); Alkaline Phosphatase 81 U/L (39-117); Anion Gap 10 (12-20); Aspartate Amino Transferase 14 U/L (5-31); Bilirubin Total 0.3 mg/dL (0.0-1.0); Blood Urea Nitrogen 11 mg/dL (9-16); Calcium 9.5 mg/dL (8.4-10.2); Carbon Dioxide 26 mmol/L (22-29); Chloride 107 mmol/L (96-108); Cholesterol 223 mg/dL (<200); Estimated Glomerular Filt Rate > 60; Glucose Fasting 101 mg/dL (60-99); HDL Cholesterol 43 mg/dL (>40); LDL Cholesterol Calculated 145 mg/dL (<100); Potassium 3.8 mmol/L (3.3-5.1); Sodium 139 mmol/L (135-145); Total Protein 7.9 g/dL (6.5-8.0); Triglycerides 175 mg/dL (<150)
[2023-04-27 12:03] LABS: TSH reflex Free T4 1.32 uIU/mL (0.32-4.0)
[2023-04-27 12:47] LABS: Estimated Average Glucose 111 mg/dL; Hemoglobin A1c % 5.5 % (<6.0)
== END 2023-04-27 08:39 | disposition home or self-care (01) ==
LOC: HO.HMGCLDS 08:38
PROVIDERS: PCP Internal Medicine; Visit Provider Internal Medicine
DX: Z00.00 Encounter for general adult medical examination without abnormal findings (principal); E78.5 Hyperlipidemia, unspecified
CPT/HCPCS: 36415; 80053; 80061; 81003; 83036; 84443; 85025

== ENCOUNTER 2023-05-12 11:04 | Outpatient (REF) | payer OTHER, SELFPAY ==
--- NOTE | ~2023-05-12 | US_ITS ---
EXAMINATION: US THYROID CLINICAL INFORMATION: Lmuuqd-jynswlwphv-rxytsjx diffuse (endemic) goiter. COMPARISON: None available. TECHNIQUE: Linear transducer grayscale and color Doppler examination with attention to the region of the thyroid. FINDINGS: SIZE: Measurements of the thyroid lobes and nodules are given in sagittal, anteroposterior and transverse dimensions respectively. Right Thyroid Lobe: 3.6 x 0.9 x 1.5 cm, volume 2.3 mL. Parenchyma: The gland echotexture is homogeneous. Thyroid vascularity is normal. Left Thyroid Lobe: 4.3 x 0.8 x 1.5 cm, volume 2.3 mL. Parenchyma: The gland echotexture is homogeneous. Thyroid vascularity is normal. Isthmus: 0.2 cm in maximum AP dimension. No suspicious thyroid nodule is identified. NODES: No lymphadenopathy is seen in the tissue surrounding the thyroid gland. US/US thyroid IMPRESSION: No suspicious thyroid nodules. ACR TI-RADS RECOMMENDATION REFERENCE: Ultrasound-guided fine-needle aspiration, followup ultrasound, no further followup. * TR1 (0 point) and TR2 (2 points): No FNA or followup. * TR3 (3 points): FNA if more than or equal to 2.5 cm in maximum dimension, followup ultrasound in 1, 3 and 5 years if 1.5 to 2.4 cm in maximum dimension. * TR4 (4-6 points): FNA if more than or equal to 1.5 cm in maximum dimension, followup ultrasound in 1, 2, 3 and 5 years if 1 to 1.4 cm in maximum dimension. * TR5 (more than or equal to 7 points): FNA if more than or equal to 1 cm in maximum dimension, followup ultrasound every year for 5 years if 0.5 to 0.9 cm in maximum dimension. * TR3, TR4 or TR5 nodules that are below the size threshold for followup receive no followup.
== END 2023-05-12 11:05 | disposition home or self-care (01) ==
LOC: HO.US 11:04
PROVIDERS: PCP Internal Medicine; Visit Provider Internal Medicine
DX: E01.0 Iodine-deficiency related diffuse (endemic) goiter (principal)
CPT/HCPCS: 76536

== ENCOUNTER 2024-01-10 09:28 | Outpatient (AMB) | payer OTHER, SELFPAY ==
[2024-01-10 10:47] VITALS: BP 110/72; PULSE 88; O2SAT 98
--- NOTE | 2024-01-10 10:47 | AM.OFFWIN_ITS ---
Intake Vital Signs 01/10/24 10:47 Weight 200 lb BP 110/72 Blood Pressure Location Lt brachial Position Sitting Pulse 88 Pulse Source Pulse Oximeter Pulse Oximetry (%) 98 Oxygen Delivery Method Room Air Intake Visit Reasons: EP Pain in RUQ Intake Note: Patient here for right upper quad pain that started yesterday. Patient Tobacco Use Status: Never used Tobacco Allergies lactose Allergy (Verified 01/10/24 10:50) Unknown Do you need a note to return to daycare/school/sports/work: Yes HPI HPI Comments History of Present Illness Details 33 y/o female patient who presents to [facility] with c/o RUQ Abdominal pain and tenderness since yesterday. Reports that yesterday she was doing lots of cleaning in the house prior to the pain start. She believes this pain might be muscular vs Organ. Denies nausea, vomiting, Fevers, chills, constipation or diarrhea. FOR[facility]LY [facility], [facility] Medical History Hyperlipidemia Normal pelvic exam Annual physical exam Surgical History Epidermal cyst Family History Father HTN (hypertension) Cancer Diabetes mellitus Unknown family medical history Mother HTN (hypertension) Maternal Grandmother No problems noted. Maternal Grandfather Unknown family medical history Paternal Grandmother Unknown family medical history Cancer Paternal Grandfather Unknown family medical history Brother No problems noted. Sister No problems noted. Sister No problems noted. Social History Household Members Other:: , no children, works in school cafeteria Housing: House Patient Tobacco Use Status: Never used Tobacco e-Cigarette/Vaping Use: Never Used Current occupational status: employed Cognitive needs: No Hearing needs: No Vision needs: Yes Review of Systems Const All systems reviewed & are unremarkable except as noted in HPI and below Physical Exam Vital Signs: Last Vital Signs Pulse 88 01/10/24 10:47 BP 110/72 01/10/24 10:47 Pulse Ox 98 01/10/24 10:47 Oxygen Delivery Method Room Air 01/10/24 10:47 Resp Effort & Inspection: normal respiratory effort and able to speak in complete sentences Auscultation: clear to auscultation bilaterally, no crackles, no rales, no rhonchi and no wheezes Cardio Heart sounds: S1 normal heart sound present and S2 normal heart sound present GI Inspection: Yes normal to inspection, Yes Abdominal panniculus present and Yes obesity Palpation (GI): Soft to palpation, not firm, Tenderness to palpation present (GI) in the RLQ and in the RUQ, no guarding, not rigid and No hepatosplenomegaly present Auscultation: normal bowel sounds Rectal Exam - Female: deferred Assessment & Plan Assessment & Plan (1) Acute abdominal pain in right upper quadrant: Code(s): R10.11 - Right upper quadrant pain Plan: Exam positive for RUQ abdominal wall tenderness. Acetaminophen for pain relief IceHot RTC if not better. Plan Exam positive for RUQ abdominal wall tenderness. Acetaminophen for pain relief IceHot RTC if not better. Coding Level of Care Code Est Pt Level 3 (48332) Diagnoses Acute abdominal pain in right upper quadrant R10.11 Time Spent (min) 15
== END 2024-01-10 11:08 | disposition home or self-care (01) ==
PROVIDERS: PCP Internal Medicine; Visit Provider Nurse Practitioner Family
DX: R10.11 Right upper quadrant pain (principal)

== ENCOUNTER → 2024-01-10 09:28 | Outpatient (BNVA) | payer OTHER, SELFPAY | PROVIDERS: PCP Internal Medicine; Visit Provider Nurse Practitioner Family ==

== ENCOUNTER 2024-03-24 04:52 | Emergency (ER) | payer OTHER, SELFPAY ==
--- NOTE | ~2024-03-24 | XR_ITS ---
CLINICAL HISTORY: sob 1 view chest x-ray Comparison: 08/11/2021 Findings: The lungs are clear. Normal size heart. No acute fracture. IMPRESSION: 1. No acute findings. This document has been electronically signed by: Jared Rice MD on 03/24/2024 05:19:51
[2024-03-24 04:56] VITALS: BP 133/67; PULSE 94; RESP 20; TEMP 36.5; O2SAT 96; BMI 68.3
--- NOTE | 2024-03-24 05:21 | MHC.EDTECH ---
Patient brought into triage area,Sars/Flu/Rsv obtained and sent to lab
[2024-03-24 05:59] LABS: Influenza A PCR POSITIVE (Negative); Influenza B PCR NEGATIVE (Negative); Resp Syncy Virus RNA Qual PCR NEGATIVE (Negative); SARS COV2 PCR INHOUSE NEGATIVE (Negative)
[2024-03-24] MEDS: Benzonatate 100 MG CAPSULE PO (06:46)
[2024-03-24 06:47] VITALS: BP 121/81; PULSE 82; RESP 16; TEMP 36.9; O2SAT 96
--- NOTE | 2024-03-24 06:47 | ED_ITS ---
HPI - General Adult General Chief complaint: Upper Respiratory Symptoms Stated complaint: Flu like, diff breathing Time Seen by Provider: 03/24/24 06:27 Source: patient Mode of arrival: ambulatory Limitations: no limitations History of Present Illness ED Provider: Dr. Josey Mcallister HPI narrative: Patient comes to the emergency room complaining of 1 week of cough, fever, chest pain with coughing. 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 Patient denies shortness of breath. Related Data Previous Rx's ?Medication ?Instructions ?Recorded acetaminophen 500 mg tablet 500 mg PO Q6H PRN fever or pain 03/24/24 #14 tabs benzonatate 100 mg capsule 100 mg PO TID PRN cough #12 caps 03/24/24 ibuprofen 600 mg tablet 600 mg PO TID PRN fever or pain 03/24/24 #14 tabs Allergies Allergy/AdvReac Type Severity Reaction Status Date / Time lactose Allergy Unknown Verified 03/24/24 05:03 Review of Systems Review of Systems: Constitutional : No Weight loss, complaining of fever and chills, fatigue and generalized malaise. ENT/Mouth : No Hearing loss, No Ear Pain, No Nasal Congestion, No Sinus Pain, No Hoarseness, No sore throat, No Rhinorrhea, No Swallowing Difficulty Eyes: No Eye Pain, No Swelling, No Redness, No Foreign Body, No Discharge, No Vision Changes Cardiovascular : No Chest Pain, No SOB, No Dyspnea on Exertion, No Orthopnea, No Edema, No Palpitations Respiratory : Complaining of cough No Sputum, No Wheezing, No Smoke Exposure, No Dyspnea Gastrointestinal : No Nausea, No Vomiting, No Diarrhea, No Constipation, No abdominal Pain, No Hematochezia, No Melena Genitourinary : no irregular bleeding, No Dysuria, No Urinary Frequency, No Hematuria, No Urinary Incontinence, No Urgency, No Flank Pain, No Urinary Flow Changes, No Hesitancy Musculoskeletal : No joint pain, No Myalgias, No Joint Swelling Skin : No Skin Lesions, No rash Neuro : No Weakness, No Numbness, No Paresthesias, No Loss of Consciousness, No Dizziness, No Headache Psych : No Anxiety/Panic, No Depression, No SI/HI/AH/VH, No Social Issues, Heme/Lymph: No Bruising, No Bleeding,No Lymphadenopathy Endocrine : No Polyuria, No Polydipsia, No Temperature Intolerance [facility] Past Medical History Medical History Hyperlipidemia Normal pelvic exam Annual physical exam Surgical History Epidermal cyst Family History Family History Father HTN (hypertension) Cancer Diabetes mellitus Unknown family medical history Mother HTN (hypertension) Maternal Grandmother No problems noted. Maternal Grandfather Unknown family medical history Paternal Grandmother Unknown family medical history Cancer Paternal Grandfather Unknown family medical history Brother No problems noted. Sister No problems noted. Sister No problems noted. Social History Social History Household Members Other:: , no children, works in school cafeteria Housing: House Patient Tobacco Use Status: Never used Tobacco e-Cigarette/Vaping Use: Never Used Advance Directives: No Advance Directives Information Provided: Yes Do you have a plan to hurt others: No Plan Current occupational status: employed Cognitive needs: No Hearing needs: No Vision needs: Yes Physical Exam ED Vital Signs: Vital Signs - 24 hr 03/24/24 04:56 03/24/24 06:47 Temperature 97.7 F 98.4 F Pulse Rate 94 82 Respiratory Rate 20 16 Blood Pressure 133/67 121/81 Pulse Oximetry 96 96 Oxygen Delivery Method Room Air Room Air BMI result Body Mass Index 68.3 Const Other: Appearance: Alert. Oriented X3. No acute distress. Eyes: Pupils equal, round and reactive to light. ENT: Pharynx normal. Neck: Normal inspection. Neck supple. No lymph nodes noted. No crepitus CVS: Normal heart rate and rhythm. Pulses normal. Normal S1 and S2 Respiratory: No respiratory distress. Breath sounds normal. No Wheezing. No rales Abdomen: Soft and nontender. No rigidity. No distention. Skin: Skin warm and dry. Normal skin color. Normal skin turgor. Extremities: No lower extremity edema. No Lacerations. No Rash Neuro: Oriented X 3. No motor deficit. No sensory deficit. Moving all extremities. No slurred speech. CN 2 through 12 grossly intact Psych: calm, cooperative, normal affect Medications Administered Discontinued Medications Generic Name Dose Route Start Last Admin Trade Name Freq PRN Reason Stop Dose Admin Benzonatate 100 mg 03/24/24 06:39 03/24/24 06:46 Benzonatate 100 Mg Capsule PO 03/24/24 06:40 100 mg ONCE ONE Administration Medical Decision Making Medical Decision Making [facility] Narrative: My interpretation of labs: Patient tested positive for influenza A. Chest x-ray does not show any acute abnormality. Lab Data [facility] Lab Attestation statement: I reviewed the patient's lab results. Labs: Lab Results 03/24/24 Range/Units 05:19 Influenza Type A (PCR) POSITIVE A (Negative) Influenza Type B (PCR) NEGATIVE (Negative) RSV RNA Qual (PCR) NEGATIVE (Negative) SARS-CoV-2 RNA (RT-PCR) NEGATIVE (Negative) Independent Interpretation I performed an independent interpretation of an: Plain X-Ray Radiology Impression Discussion of test interpretation with radiology: I have reviewed the radio logist's reading. Radiologist Impression: Findings: The lungs are clear. Normal size heart. No acute fracture. IMPRESSION: 1. No acute findings. Discharge Plan Discharge Clinical Impression: Influenza A Patient Disposition: Home, Self-Care Instructions: Influenza (ED) Additional Instructions: Please follow-up with your primary care physician tomorrow. If you have any worsening or new symptoms, please return to the emergency room or call 911 Prescriptions: New benzonatate 100 mg capsule 100 mg PO TID PRN (Reason: cough) Qty: 12 0RF ibuprofen 600 mg tablet 600 mg PO TID PRN (Reason: fever or pain) Qty: 14 0RF acetaminophen 500 mg tablet 500 mg PO Q6H PRN (Reason: fever or pain) Qty: 14 0RF Print Language: Spanish
[2024-03-24 07:18] VITALS: BP 121/81; PULSE 82; RESP 16; TEMP 36.9; O2SAT 96
== END 2024-03-24 07:19 | disposition home or self-care (01) ==
PROVIDERS: Emergency Provider Emergency Medicine
DX: J10.1 Influenza due to other identified influenza virus with other respiratory manifestations (principal); R05.9 Cough, unspecified; Z03.818 Encounter for observation for suspected exposure to other biological agents ruled out
CPT/HCPCS: 0241U; 71045; 99283; 99284

== ENCOUNTER → 2024-03-24 05:05 | Outpatient (BNV) | payer OTHER, SELFPAY | PROVIDERS: Visit Provider Specialist | DX: R06.02 Shortness of breath (principal) | CPT/HCPCS: 71045 ==